=== PATIENT | female | born 1930 | race Caucasian/White ===

== ENCOUNTER 2017-10-22 15:00 | Inpatient (IN) | payer MEDICARE, OTHER ==
[2017-10-22] MEDS ORDERED: MORPHINE 4 MG/ML SYR ONE ×3 (15:15→19:49)
[2017-10-22] MEDS ORDERED: ONDANSETRON 4 MG/2 ML VIAL ONE ×2 (15:15→16:33)
[2017-10-22 15:33] LABS: Absolute Lymphocytes (CBC) 1.4 K/uL (0.7-4.9); Absolute Monocytes 0.4 K/uL (0.1-1.3); Absolute Neutrophil 5.1 K/uL (1.8-8.0); Basophils % 0.8 % (0-1.3); Eosinophils % 3.1 % (0-4.4); Lymphocytes % 19.6 % (15.3-44.8); MCH 30.4 pg (27.0-35.0); MCV 90.2 fL (80-100); MPV 10.9 fL (7.6-11.3); Monocytes % 5.6 % (3.3-12.3); RBC Red Blood Cell Count 3.88 M/uL (3.86-4.86)
[2017-10-22 15:38] LABS: Protime INR 0.98
[2017-10-22 15:59] LABS: ALT/SGPT 15 U/L (12-78); AST/SGOT 17 U/L (15-37); Albumin 3.5 g/dL (3.4-5.0); Alkaline Phosphatase 70 U/L (45-117); BUN Blood Urea Nitrogen 12 mg/dL (7-18); Bicarbonate 25 mmol/L (21-32); Bilirubin Direct 0.1 mg/dL (0-0.2); Bilirubin Total 0.5 mg/dL (0.2-1.0); Creatine Phosphokinase 55 U/L (26-192); Glucose Level 157 mg/dL (74-106); Protein, Total 6.6 g/dL (6.4-8.2); Sodium Level 142 mmol/L (136-145)
[2017-10-22 16:00] LABS: CKMB Creatine Kinase MB < 1.0 ng/mL (0.3-3.6); Magnesium 1.5 mg/dL (1.8-2.4); NT PRO-BNP 298 pg/mL (<450)
--- NOTE | 2017-10-22 16:17 | RAD REPORT ---
EXAM DESCRIPTION: RAD - Pelvis - 10/22/2017 4:08 pm CLINICAL HISTORY: left hip pain Trauma, fall COMPARISON: None FINDINGS: AP pelvis, left hip and left femur - multiple projections. Intratrochanteric fracture the proximal left femur is seen with varus angulation. No dislocation evid ent.
--- NOTE | 2017-10-22 16:18 | RAD REPORT ---
EXAM DESCRIPTION: RAD - Chest Single View - 10/22/2017 4:10 pm CLINICAL HISTORY: fall Chest pain. COMPARISON: No comparisons FINDINGS: Portable technique limits examination quality. The lungs are grossly clear. The heart is normal in size. No displaced fractures.Calcified right corinne tracheal lymph node noted. IMPRESSION: No acute intrathoracic process suspected.
[2017-10-22] MEDS ORDERED: MAGNESIUM SULFATE 1 gm IVPB 1 GM/100 ML BAG IV ONE (16:33)
[2017-10-22] MEDS ORDERED: NA CHLORIDE 0.9% 100 ML IV ONE (16:35)
--- NOTE | 2017-10-22 17:20 | EDPHYS ---
Physician Documentation [facility] Name: Katherin Arcos Age: 87 yrs Sex: Female : 1930 Arrival Date: 10/22/2017 Time: 15:02 Bed 28 Private MD: ED Physician Charanjit Mortensen HPI: 10/22 15:15 This 87 yrs old Female presents to ER via EMS with complaints of Fall Injury. cp 15:15 Details of fall: The patient fell from an upright position, while walking. 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 Associated injuries: The cp patient sustained left hip, decreased range of motion, deformity, obvious fracture, painful injury. Severity of symptoms: in the emergency department the symptoms are unchanged, despite EMS interventions. Historical: - Allergies: 15:06 No Known Allergies; tw2 - Home Meds: 15:06 None [Active]; tw2 - PMHx: 15:06 None; tw2 - Immunization history:: Adult Immunizations up to date. - Social history:: Smoking status: Patient/guardian denies using tobacco. - Immunization history: Last tetanus immunization: unknown. - Ebola Screening: : Patient denies travel to an Ebola-affected area in the 21 days before illness onset. ROS: 15:20 Constitutional: Negative for body aches, chills, fever, poor PO intake. cp 15:20 Eyes: Negative for injury, pain, redness, and discharge. cp 15:20 ENT: Negative for drainage from ear(s), ear pain, sore throat, difficulty swallowing, difficulty handling secretions. 15:20 Cardiovascular: Negative for chest pain, edema, palpitations. 15:20 Respiratory: Negative for cough, shortness of breath, wheezing. 15:20 Abdomen/GI: Negative for abdominal pain, nausea, vomiting, and diarrhea, black/tarry stool, rectal bleeding. 15:20 Back: Negative for pain at rest, pain with movement, radiated pain. 15:20 : Negative for urinary symptoms. 15:20 MS/extremity: Positive for injury or acute deformity, decreased range of motion, deformity, pain, tenderness, of the left hip, Negative for paresthesias. 15:20 Skin: Negative for cellulitis, rash. 15:20 Neuro: Negative for altered mental status, headache, loss of consciousness, syncope, near syncope, weakness. 15:20 All other systems are negative. Exam: 15:30 ECG was reviewed by the Attending Physician. cp 15:30 Constitutional: The patient appears in no acute distress, alert, awake, non-toxic, well cp developed, frail. 15:30 Head/Face: Normocephalic, atraumatic. cp 15:30 Eyes: Periorbital structures: appear normal, Pupils: equal, round, and reactive to cp light and accomodation, Extraocular movements: intact throughout, Conjunctiva: normal, no exudate, no injection, Sclera: no appreciated abnormality, Lids and lashes: appear normal, bilaterally. 15:30 ENT: External ear(s): are unremarkable, Ear canal(s): are normal, clear, TM's: bulging, is not appreciated, bilaterally, dullness, bilaterally, erythema, is not appreciated, bilaterally, Nose: is normal, Mouth: Lips: moist, Oral mucosa: moist, Posterior pharynx: is normal, airway is patent, no erythema, no exudate. 15:30 Neck: C-spine: vertebral tenderness, is not appreciated, crepitus, is not appreciated, cp ROM/movement: is normal, is supple, without pain, no range of motions limitations, no nuchal rigidity. 15:30 Chest/axilla: Inspection: normal, Palpation: is normal, no crepitus, no tenderness. 15:30 Cardiovascular: Rate: normal, Rhythm: regular, Pulses: Pulses are 2+ in right radial artery and left radial artery. Edema: is not appreciated. 15:30 Respiratory: the patient does not display signs of respiratory distress, Respirations: normal, no use of accessory muscles, no retractions, no splinting, no tachypnea, Breath sounds: are clear throughout, no decreased breath sounds, no stridor, no wheezing. 15:30 Abdomen/GI: Inspection: abdomen appears normal, Bowel sounds: active, all quadrants, Palpation: abdomen is soft and non-tender, in all quadrants. 15:30 Back: pain, is absent, ROM is normal. 15:30 Musculoskeletal/extremity: Extremities: grossly normal except: noted in the left hip: decreased ROM, deformity, pain, tenderness, ROM: limited passive range of motion due to pain, in the left hip, Perfusion: the extremity is normally perfused throughout, Sensation intact. 15:30 Skin: cellulitis, is not appreciated, no rash present. 15:30 Neuro: Orientation: to person, place \T\ time. Mentation: lucid, able to follow commands, Cerebellar function: is grossly normal, Motor: moves all fours, strength is normal, Sensation: no obvious gross deficits. Vital Signs: 15:05 BP 165 / 72; Pulse 83; Resp 17; Temp 98.3(O); Pulse Ox 96% ; tw2 16:22 BP 158 / 73; Pulse 90; Resp 18; Pulse Ox 100% on R/A; Pain 7/10; mg2 17:24 BP 138 / 69; Pulse 93; Resp 18; Pulse Ox 99% on R/A; Pain 4/10; mg2 18:21 BP 151 / 58; Pulse 89; Resp 18; Pulse Ox 100% on R/A; Pain 3/10; mg2 19:53 BP 162 / 69; Pulse 90; Resp 18; Temp 98.3(O); Pulse Ox 98% on R/A; Pain 4/10; mg2 [place] Coma Score: 15:06 Eye Response: spontaneous(4). Verbal Response: oriented(5). Motor Response: obeys tw2 commands(6). Total: 15. Trauma Score (Adult): 15:06 Eye Response: spontaneous(1); Verbal Response: oriented(1); Motor Response: obeys tw2 commands(2); Systolic BP: > 89 mm Hg(4); Respiratory Rate: 10 to 29 per min(4); [place] Score: 15; Trauma Score: 12 MDM: 15:04 Patient medically screened. access [facility] [place] 16:00 Differential diagnosis: closed head injury, contusion, fracture, laceration, multiple cp trauma. 16:32 Physician consultation: Wilbert Singh MD was called at 16:32, was contacted at 16:32, regarding consult, patient's condition, would like admission per Dr. Johnathon Gonzales MD. 17:15 Data reviewed: vital signs, nurses notes, lab test result(s), radiologic studies, plain cp films. 17:15 Test interpretation: by ED physician or midlevel provider: plain radiologic studies. cp Counseling: I had a detailed discussion with the patient and/or guardian regarding: the historical points, exam findings, and any diagnostic results supporting the discharge/admit diagnosis, lab results, the need for further work-up and treatment in the hospital. 17:18 Physician consultation: Johnathon Gonzaels MD was called at 17:18, was contacted at 17:18, regarding admission, to the telemetry unit. patient's condition. 10/22 15:17 Order name: Basic Metabolic Panel; Complete Time: 16:24 ss 10/22 15:17 Order name: CBC with Diff; Complete Time: 16:24 ss 10/22 15:17 Order name: Ckmb; Complete Time: 16:24 ss 10/22 15:17 Order name: CPK; Complete Time: 16:24 ss 10/22 15:17 Order name: LFT's; Complete Time: 16:24 ss 10/22 15:17 Order name: Magnesium; Complete Time: 16:24 ss 10/22 15:17 Order name: NT PRO-BNP; Complete Time: 16:24 ss 10/22 15:17 Order name: PT-INR; Complete Time: 16:24 ss 10/22 15:17 Order name: Ptt, Activated; Complete Time: 16:24 ss 10/22 15:17 Order name: Troponin (emerg Dept Use Only); Complete Time: 16:24 ss 10/22 15:17 Order name: Type And Screen; Complete Time: 17:13 ss 10/22 16:40 Order name: ABO/RH no charge; Complete Time: 17:13 EDMS 10/22 17:04 Order name: Urine Dipstick--Ancillary (enter results) eb 10/22 17:30 Order name: CBC with Automated Diff EDMS 10/22 15:08 Order name: XRAY Hip LEFT 2 view cp 10/22 15:08 Order name: XRAY Femur LEFT cp 10/22 15:08 Order name: XRAY Pelvis; Complete Time: 16:24 cp 10/22 15:17 Order name: XRAY Chest (1 view); Complete Time: 16:24 ss 10/22 15:17 Order name: EKG; Complete Time: 15:18 ss 10/22 17:30 Order name: CBC with Automated Diff EDMS 10/22 17:30 Order name: Comprehensive Metabolic Panel EDMS 10/22 17:30 Order name: Comprehensive Metabolic Panel EDMS 10/22 17:30 Order name: Magnesium EDMS 10/22 17:30 Order name: Magnesium EDMS 10/22 15:08 Order name: IV; Complete Time: 15:10 cp 10/22 15:17 Order name: Cardiac monitoring; Complete Time: 15:29 ss 10/22 15:17 Order name: EKG - Nurse/Tech; Complete Time: 15:29 ss 10/22 15:17 Order name: Labs collected and sent; Complete Time: 15:29 ss 10/22 15:17 Order name: O2 Per Protocol; Complete Time: 15:29 ss 10/22 15:17 Order name: O2 Sat Monitoring; Complete Time: 15:29 ss 10/22 15:17 Order name: Urine Dipstick-Ancillary (obtain specimen); Complete Time: 17:23 ss 10/22 15:17 Order name: Diaz; Complete Time: 17:23 ss 10/22 17:30 Order name: CONS Physician Consult EDMS 10/22 17:30 Order name: NPO EDMS 10/22 17:30 Order name: Regular EDMS EC:30 Rate is 79 beats/min. Rhythm is regular. [place] interval is normal. QRS interval is normal. cp QT interval is normal. Interpreted by me. Reviewed by me. Administered Medications: 15:16 Drug: morphine 2 mg Route: IVP; Site: left antecubital; mg2 18:28 Follow up: Response: No adverse reaction; Pain is decreased mg2 15:16 Drug: Zofran 4 mg Route: IVP; Site: left antecubital; mg2 18:28 Follow up: Response: No adverse reaction; Marked relief of symptoms mg2 15:30 Drug: morphine 2 mg Route: IVP; Site: left antecubital; mg2 18:27 Follow up: Response: No adverse reaction; Marked relief of symptoms; Pain is decreased mg2 16:41 Drug: Zofran 4 mg Route: IVP; Site: left antecubital; mg2 18:27 Follow up: Response: No adverse reaction; Marked relief of symptoms mg2 16:42 Drug: Magnesium Sulfate 1 grams Route: IVPB; Infused Over: 1 hrs; Site: left mg2 antecubital; 18:27 Follow up: Response: No adverse reaction mg2 16:42 Drug: morphine 4 mg Route: IVP; Site: left antecubital; mg2 18:27 Follow up: Response: No adverse reaction; Marked relief of symptoms; Pain is decreased mg2 Disposition: 10/23 06:51 Co-signature as Attending Physician, Charanjit Mortensen MD I agree with the assessment and dashawn plan of care. Disposition: 10/22/17 17:20 Hospitalization ordered by Johnathon Gonzales for Inpatient Admission. Preliminary diagnosis are Intertrochanteric fracture of femur - Left, Other slipping, tripping and stumbling and falls. - Bed requested for Telemetry/MedSurg (Inpatient). - Status is Inpatient Admission. mg2 - Condition is Stable. - Problem is new. - Symptoms have improved. UTI on Admission? No Signatures: Dispatcher [employer] EDMS Ginette Ashley RN RN Charanjit Crane MD MD cha Smirch, Shelby RN RN ss Charanjit Dominique, FENG PA cp Lynsey Baumann RN RN tw2 Ghanshyam Barclay RN RN mg2 Corrections: (The following items were deleted from the chart) 10/22 18:07 17:20 Hospitalization Ordered by Johnathon Gonzales MD for Inpatient Admission. Preliminary dw diagnosis is Intertrochanteric fracture of femur - Left; Other slipping, tripping and stumbling and falls. Bed requested for Telemetry/MedSurg (Inpatient). Status is Inpatient Admission. Condition is Stable. Problem is new. Symptoms have improved. UTI on Admission? No. cp 20:05 18:07 10/22/2017 17:20 Hospitalization Ordered by Johnathon Gonzales MD for Inpatient mg2 Admission. Preliminary diagnosis is Intertrochanteric fracture of femur - Left; Other slipping, tripping and stumbling and falls. Bed requested for Telemetry/MedSurg (Inpatient). Status is Inpatient Admission. Condition is Stable. Problem is new. Symptoms have improved. UTI on Admission? No. dw
--- NOTE | 2017-10-22 17:20 | ER ---
Nurse's Notes [facility] Name: Katherin Arcos Age: 87 yrs Sex: Female : 1930 Arrival Date: 10/22/2017 Time: 15:02 Bed 28 Private MD: Diagnosis: Intertrochanteric fracture of femur-Left;Other slipping, tripping and stumbling and falls Presentation: 10/22 15:03 Presenting complaint: EMS states: pt was outside feeding her birds, tripped and fell, tw2 laid there for about an hour and a half before she was able to crawl to the back door before neighbor saw her, left hip pain, external rotation and limb length discrepancy noted. Transition of care: patient was not received from another setting of care. Onset of symptoms was October 22, 2017. Risk Assessment: Do you want to hurt yourself or someone else? Patient reports no desire to harm self or others. Initial Sepsis Screen: Does the patient meet any 2 criteria? No. Patient's initial sepsis screen is negative. Does the patient have a suspected source of infection? No. Patient's initial sepsis screen is negative. Care prior to arrival: Medication(s) given: Fentanyl 50 mcg given IV initiated. 20 GA, in the left antecubital area. 15:03 Method Of Arrival: EMS: [facility] tw2 15:03 Acuity: ABEL 3 tw2 15:17 Mechanism of Injury: Fall tripped. Trauma event details: Injury occurred in the [address], Injury occurred: at home. Injury occurred: October 22, 2017 Injury occurred at: 13:00. Trauma Activation: Physician: ED Physician; Name: kamilla; Notified At: 15:00; Arrived At: 15:00 Physician: General Surgeon; Name: ; Notified At: 15:00; Arrived At: Physician: Radiology; Name: ; Notified At: 15:00; Arrived At: Physician: Respiratory; Name: ; Notified At: 15:00; Arrived At: Physician: Lab; Name: ; Notified At: 15:00; Arrived At: Historical: - Allergies: 15:06 No Known Allergies; tw2 - Home Meds: 15:06 None [Active]; tw2 - PMHx: 15:06 None; tw2 - Immunization history:: Adult Immunizations up to date. - Social history:: Smoking status: Patient/guardian denies using tobacco. - Immunization history: Last tetanus immunization: unknown. - Ebola Screening: : Patient denies travel to an Ebola-affected area in the 21 days before illness onset. Screenin:05 Abuse screen: Denies threats or abuse. Denies injuries from another. Nutritional mg2 screening: No deficits noted. Tuberculosis screening: No symptoms or risk factors identified. Fall Risk Fall in past 12 months (25 points). IV access (20 points). Gait- Impaired (20 pts.). Primary Survey: 15:08 Breathing/Chest: Respiratory pattern: regular, Respiratory effort: spontaneous, mg2 unlabored, Breath sounds: clear, bilaterally. Chest inspection: symmetrical rise and fall of the chest. Circulation: Skin color: pink. Disability Alert. 15:16 A: Airway: patent, No supplemental oxygen in use on arrival. mg2 18:42 Reassessment Breathing/Chest Respiratory pattern Regular Respiratory effort Spontaneous mg2 Unlabored Breath sounds Clear Circulation Heart rhythm Sinus rhythm Disability Alert. Secondary Survey: 15:09 HEENT: No deficits noted. Gastrointestinal: No deficits noted. : No deficits noted. mg2 Musculoskeletal: Circulation, motion, and sensation intact. Swelling present in left hip Reports pain in left hip. Assessment: 15:06 General: Appears in no apparent distress. uncomfortable, Behavior is calm, cooperative. mg2 Pain: Complains of pain in left hip Pain does not radiate. Pain currently is 8 out of 10 on a pain scale. Quality of pain is described as aching, tender, Pain began suddenly, Is intermittent. Neuro: Level of Consciousness is awake, alert, obeys commands, Oriented to person, place, time, situation. Cardiovascular: Capillary refill < 3 seconds Patient's skin is warm and dry. Pulses are all present. Respiratory: Airway is patent Respiratory effort is even, unlabored, Respiratory pattern is regular, symmetrical. GI: No signs and/or symptoms were reported involving the gastrointestinal system. : No signs and/or symptoms were reported regarding the genitourinary system. EENT: No signs and/or symptoms were reported regarding the EENT system. Derm: Skin is intact, Skin is pink, warm \T\ dry. normal. Musculoskeletal: Circulation, motion, and sensation intact. Swelling present in left hip Reports pain in left hip. 17:24 Reassessment: Patient appears in no apparent distress at this time. Patient and/or mg2 family updated on plan of care and expected duration. Pain level reassessed. Patient is alert, oriented x 3, equal unlabored respirations, skin warm/dry/pink. 18:40 Reassessment: patient informed about the admission to the floor and agreed to wait to [facility] be transferred after shift change. 19:55 Reassessment: Patient appears in no apparent distress at this time. Patient and/or mg2 family updated on plan of care and expected duration. Pain level reassessed. Patient is alert, oriented x 3, equal unlabored respirations, skin warm/dry/pink. Marlen from 2nd floor said Brandy will call back to receive the report. Vital Signs: 15:05 BP 165 / 72; Pulse 83; Resp 17; Temp 98.3(O); Pulse Ox 96% ; tw2 16:22 BP 158 / 73; Pulse 90; Resp 18; Pulse Ox 100% on R/A; Pain 7/10; mg2 17:24 BP 138 / 69; Pulse 93; Resp 18; Pulse Ox 99% on R/A; Pain 4/10; mg2 18:21 BP 151 / 58; Pulse 89; Resp 18; Pulse Ox 100% on R/A; Pain 3/10; mg2 19:53 BP 162 / 69; Pulse 90; Resp 18; Temp 98.3(O); Pulse Ox 98% on R/A; Pain 4/10; mg2 [place] Coma Score: 15:06 Eye Response: spontaneous(4). Verbal Response: oriented(5). Motor Response: obeys tw2 commands(6). Total: 15. Trauma Score (Adult): 15:06 Eye Response: spontaneous(1); Verbal Response: oriented(1); Motor Response: obeys tw2 commands(2); Systolic BP: > 89 mm Hg(4); Respiratory Rate: 10 to 29 per min(4); [place] Score: 15; Trauma Score: 12 ED Course: 15:02 Patient arrived in ED. tw2 15:04 Charanjit Mortensen MD is Attending Physician. dashawn 15:04 Charanjit Dominique PA is PHCP. cp 15:05 Ghanshyam Barclay RN is Primary Nurse. mg2 15:05 Triage completed. tw2 15:05 Arm band placed on. tw2 15:05 Maintain EMS IV. Dressing intact. Good blood return noted. Site clean \T\ dry. Gauge \T\ mg 2 site: 20 \T\ left AC. 15:17 Patient has correct armband on for positive identification. Placed in gown. Bed in low mg2 position. Call light in reach. Side rails up X2. Door closed. Warm blanket given. 15:29 EKG done, by electronic development technician. reviewed by Charanjit TONEY. sm3 16:09 XRAY Hip LEFT 2 view In Process Unspecified. EDMS 16:09 XRAY Femur LEFT In Process Unspecified. EDMS 16:09 XRAY Pelvis In Process Unspecified. EDMS 16:09 XRAY Chest (1 view) In Process Unspecified. EDMS 17:00 Urine collected: Diaz catheter specimen, clear, Amount Returned: 100mL. mg2 17:19 Johnathon Gonzales MD is Hospitalizing Provider. cp 17:25 Patient maintains SpO2 saturation greater than 95% on room air. mg2 18:41 No provider procedures requiring assistance completed. Patient admitted, IV remains in mg2 place. 18:44 Thermoregulation: warm blanket given to patient. mg2 Administered Medications: 15:16 Drug: morphine 2 mg Route: IVP; Site: left antecubital; mg2 18:28 Follow up: Response: No adverse reaction; Pain is decreased mg2 15:16 Drug: Zofran 4 mg Route: IVP; Site: left antecubital; mg2 18:28 Follow up: Response: No adverse reaction; Marked relief of symptoms mg2 15:30 Drug: morphine 2 mg Route: IVP; Site: left antecubital; mg2 18:27 Follow up: Response: No adverse reaction; Marked relief of symptoms; Pain is decreased mg2 16:41 Drug: Zofran 4 mg Route: IVP; Site: left antecubital; mg2 18:27 Follow up: Response: No adverse reaction; Marked relief of symptoms mg2 16:42 Drug: Magnesium Sulfate 1 grams Route: IVPB; Infused Over: 1 hrs; Site: left mg2 antecubital; 18:27 Follow up: Response: No adverse reaction mg2 16:42 Drug: morphine 4 mg Route: IVP; Site: left antecubital; mg2 18:27 Follow up: Response: No adverse reaction; Marked relief of symptoms; Pain is decreased mg2 Intake: 19:52 PO: 0ml; IV: 200ml (IV Fluid); Total: 200ml. mg2 Output: 19:52 Urine: 100ml (Diaz); Total: 100ml. mg2 Outcome: 17:20 Decision to Hospitalize by Provider. cp 18:44 circumstances like shift change, patient's stay in xray, awaiting for xray mg2 reportPatient's length of stay extended due to 20:01 Admitted to Med/surg accompanied by tech, via stretcher, room 204, with chart, Report mg2 called to HUMBERTO Nava 20:01 Condition: stable 20:05 Patient left the ED. mg2 Signatures: Dispatcher [employer] EDMS Charanjit Mortensen MD MD cha Page, Corey, PA Lynsey Sepulveda cp RN RN tw2 Ghanshyam Barclay RN RN mg2 Ptasy Gross 3
[2017-10-22] MEDS ORDERED: ACETAMINOPHEN 500 MG TAB PO PRN (17:26)
[2017-10-22] MEDS ORDERED: ONDANSETRON 4 MG/2 ML VIAL IV PRN (17:26)
[2017-10-22 18:36] LABS: Urine Blood 1+ (NEG); Urine Glucose NEGATIVE (NEG); Urine Protein 1+ (NEG); Urine Specific Gravity 1.025 (1.005-1.030); Urine pH 5.5 (5.0-7.0)
--- NOTE | 2017-10-22 20:14 | RAD REPORT ---
EXAM DESCRIPTION: RAD - Hip Left 2 View - 10/22/2017 4:11 pm CLINICAL HISTORY: Left hip pain Trauma, fall COMPARISON: None FINDINGS: AP pelvis, left hip and left femur - multiple projections. Intratrochanteric fracture the proximal left femur is seen with varus angulation. No dislocation evid ent.
--- NOTE | 2017-10-22 20:14 | RAD REPORT ---
EXAM DESCRIPTION: RAD - Femur Left - 10/22/2017 4:11 pm CLINICAL HISTORY: Left hip pain Trauma, fall COMPARISON: None FINDINGS: AP pelvis, left hip and left femur - multiple projections. Intratrochanteric fracture the proximal left femur is seen with varus angulation. No dislocation evid ent.
[2017-10-22] MEDS: D5 0.45 NS 1,000 ML IV SCH (21:07)
[2017-10-22] MEDS: MORPHINE 4 MG/ML SYR IV PRN (21:08)
--- NOTE | 2017-10-22 21:52 | EKG ---
Test Date: 2017-10-22 Test Time: 15:21:38 Lime Sludge Mixer: JAVIER MEASUREMENT RESULTS: Intervals: Rate: 79 IA: 140 QRSD: 74 QT: 364 QTc: 417 [place]: P: 39 IA: 140 QRS: 5 T: 31 INTERPRETIVE STATEMENTS: Sinus rhythm with premature atrial complexes Inferior-posterior infarct, age undetermined Abnormal ECG No previous ECG available for comparison Electronically Signed On 10-22-17 21:51:15 CDT by Perry Patel
--- NOTE | 2017-10-23 01:45 | HP ---
Date of Admission: 10/22/2017 Primary Care Physician: None. Consultants: Wilbert Singh MD, with Orthopedics. Code Status: Full. Chief Complaint: Fall, pain in the left hip. History Of Present Illness: The patient is an 87-year-old female with no significant past medical hi story, who was outside feeding the Square, and had a mechanical fall on the uneven stones, and was makenzie n for approximately an hour to an hour and a half, having some significant pain on the left side, no head trauma. The patient denies any dizziness, lightheadedness, shortness of breath, chest pain, or loss of consciousness. The patient was helped up by her neighbor and was brought into the ER for fur ther evaluation. The patient's pain is constant, moderate, nonradiating, progressively worsening. I n the ER, her workup revealed normal white count, hemoglobin 11.8. The patient was referred for admi ssion for hip fracture, which was on the left side. X-ray showed intertrochanteric fracture of the p roximal left femur. When the patient was seen in the ER, she was awake, alert, and oriented x3, in s ome mild distress due to pain, which had improved with medications. Past Medical History: None. Past Surgical History: The patient had hysterectomy. Allergies: NO KNOWN DRUG ALLERGIES. Medications: None. Social History: The patient denies any tobacco use, alcohol use, or illicit drug use. The patient i s independent in her activities of daily living. Does not use any assistive ambulatory devices. Desiree es at home by herself. Family History: The patient denies any significant family history in her siblings or her parents. M other of old age in her late 90s. Review of Systems: Eleven-point system reviewed, negative except as per HPI. Physical Examination: Vital Signs: Temperature 98.3, heart rate 83, blood pressure 165/72, respirations 17, O2 saturation 96% on room air. General: Awake, alert, oriented x3. Some mild distress due to pain. Elderly female. HEENT: Normocephalic, atraumatic. PERRLA. EOMI. Moist mucous membranes. Oropharynx is clear. Po or dentition. Conjunctivae anicteric. Neck: Supple. No JVD. Trachea midline. CV: S1, S2. Regular rate and rhythm. Peripheral pulses present. No murmurs. Respiratory: Clear to auscultation bilaterally. No wheezing. No stridor. No use of accessory musc les. Gastrointestinal: Abdomen is soft, nontender, and nondistended. Positive bowel sounds. No guarding or rigidity. Extremities: No clubbing, cyanosis, or edema. No calf tenderness. Musculoskeletal: Pain in the left hip. Left lower extremity is externally rotated and shortened. Neuro: Cranial nerves 2 through 12 intact grossly. No focal neurological deficit. Sensation intact to light touch. Speech is normal. No facial asymmetry. Psych: Mood is okay. Affect is full. Insight and judgment are good. Skin: No rashes. Normal skin turgor. Laboratory Data: Sodium 142, potassium 4, chloride 109, CO2 25, BUN 12, creatinine 1, glucose 157, c alcium 9, magnesium 1.5. Troponin less than 0.02. INR 0.98. WBC 7.2, H and H 11.8 and 35, platelet s 181. Chest x-ray shows no acute intrathoracic process, personally reviewed. Hip x-ray shows inter trochanteric fracture of the proximal left femur with varus angulation. No dislocation event. Assessment And Plan: An 87-year-old female with; 1.Left intertrochanteric fracture of the proximal left femur. Dr. Singh has been consulted. We wi ll anticipate surgery in a.m. The patient does not have any medical history. EKG shows normal sinus rhythm. Troponins are negative. The patient is cleared for surgical intervention. We will start o n IV fluids. Keep n.p.o. after midnight. Pain medications with morphine. 2.Status post mechanical fall. 3.Hypomagnesemia. We will replace and monitor. 4.Gastrointestinal and deep venous thrombosis prophylaxes, addressed. No chemical anticoagulation d ue to anticipating surgery. Plan: Admit the patient to Med-Surg, place as inpatient. The patient will likely need to go to reha b after surgery. We will obtain UA. MEDINA/THOMPSON Voice ID: [id number]
[2017-10-23 05:01] LABS: Absolute Lymphocytes (CBC) 0.7 K/uL (0.7-4.9); Absolute Monocytes 0.6 K/uL (0.1-1.3); Absolute Neutrophil 4.9 K/uL (1.8-8.0); Basophils % 0.5 % (0-1.3); Eosinophils % 0.8 % (0-4.4); Hematocrit 28.8 % (36.0-45.0); Lymphocytes % 11.5 % (15.3-44.8); MCH 30.6 pg (27.0-35.0); MPV 10.5 fL (7.6-11.3); Monocytes % 9.6 % (3.3-12.3)
[2017-10-23 05:24] LABS: Albumin 2.7 g/dL (3.4-5.0); Bilirubin Total 0.5 mg/dL (0.2-1.0); Magnesium 1.7 mg/dL (1.8-2.4); Potassium 4.4 mmol/L (3.5-5.1); Protein, Total 5.3 g/dL (6.4-8.2)
[2017-10-23] MEDS: MORPHINE 4 MG/ML SYR IV PRN ×4 (05:27→23:18)
[2017-10-23] MEDS: D5 0.45 NS 1,000 ML IV SCH ×2 (05:33→23:23)
[2017-10-23] MEDS ORDERED: MAGNESIUM SULFATE 1 gm IVPB 1 GM/100 ML BAG IV ONE (06:15)
--- NOTE | 2017-10-23 11:28 | PREOPHP ---
Date of Admission: 10/22/2017 Requesting Physician: Dr. Johnathon Gonzales. Reason For Consultation: Left hip fracture. History Of Present Illness: This 87-year-old female was walking in her backyard when she tripped and fell impacting her left hip. She was unable to ambulate and crawled taking an hour and a half to ge t out of the sun to her back porch, where she was discovered by a neighbor and brought to [facility] ED via ambulance. The patient has no known allergies. No active home meds. She describes having no significant past medical history. The patient's vital signs are stable. Th e history of present illness is as above. Past Surgical History: Limited. Hysterectomy. Social History: The patient does not use tobacco or alcohol. Review of Systems: A 10-point system reviewed, negative except as per HPI. Physical Examination: Vital Signs: Blood pressure is 165/72, respirations 17, O2 saturation 96% on room air, temperature 9 8.3. General: The patient is alert, oriented, and cooperative, in mild distress with any movement because of pain in the left hip. HEENT: Within normal limits. Neck: Supple. Nontender. Chest: Clear to auscultation. Cardiovascular: Shows regular rate and rhythm. Pulses are strong. Abdomen: Soft and nontender without distention. Active bowel sounds are present. Extremities: On examination of the extremities, the left lower extremity has a strong dorsal pedis p ulse. There is external rotation and shortening of the left lower extremity. Any movement of the up per body causes pain in the hip as well. Genital: Deferred. Rectal: Deferred. Laboratory Data: Shows H and H of 11.8/35, WBC 7.2 with 71% neutrophils. Protime is 11.6. INR is 0 .98. PTT is 22.8, slightly low. GFR is 53. Glucose is 57. Chest x-ray is clear. Hip x-ray shows an intertrochanteric fracture of the proximal left femur with varus angulation. Assessment And Plan: Left intertrochanteric fracture of the proximal left femur. The patient has be en made aware of risks and benefits and wishes to proceed with intramedullary nail fixation for this left hip fracture. Dr. Gonzales has cleared the patient surgically. SLH/MODL Voice ID: [id number]
[2017-10-23] MEDS ORDERED: Ringers Lactate 1,000 ML IV ONE ×2 (12:29→13:32)
[2017-10-23] MEDS ORDERED: PROPOFOL 200 MG/20 ML VIAL IV ONE (12:44)
[2017-10-23] MEDS ORDERED: LIDOCAINE 2% MPF 5 ML VIAL ONE (12:45)
[2017-10-23] MEDS ORDERED: FENTANYL CITR 100 MCG/2 ML ONE ×2 (12:45→13:45)
[2017-10-23] MEDS ORDERED: ONDANSETRON HCL 40 MG/20 ML VIAL ONE (12:46)
[2017-10-23] MEDS ORDERED: CEFAZOLIN/SWI 1gm 1 GM/10 ML SYR ONE (12:48)
[2017-10-23] MEDS ORDERED: EPHEDRINE SULF 50 MG/10 ML SYR ONE (13:12)
[2017-10-23] MEDS: BUPIVACA 0.25%/EPI 0.0005%/PF 30 ML VIAL ONE ×2 (13:49→14:26)
--- NOTE | 2017-10-23 14:19 | PN ---
Date of Progress Note: 10/23/2017 Subjective: The patient states her pain is improved with medications. The patient is going for surg du today. Review of Systems: Negative except as above. Medications: List reviewed. Physical Examination: Vital Signs: Temperature 98, heart rate 92, blood pressure 121/65, respirations 18, O2 92% on room a ir. General: Awake, alert, oriented x3. Some mild distress. Elderly female. CV: S1, S2. No murmurs. Regular rate and rhythm. Peripheral pulses present. Respiratory: Clear to auscultation bilaterally. No wheezing. Gastrointestinal: Abdomen is soft, nontender, nondistended. Positive bowel sounds. Extremities: No clubbing, cyanosis. Mild edema of the left lower extremity. Neurologic: Nonfocal. Sensation intact light touch. Laboratory Data: Sodium 142, potassium 4.4, chloride 110, CO2 28, BUN 12, creatinine 6.8, glucose 13 2, calcium 8.1, magnesium 1.7. AST 115, ALT 94, and albumin 2.7. WBC 6.3, H and H 9.8 and 38.8, domingo telets 127, neutrophils 77%. Assessment And Plan: An 87-year-old female with: 1.Acute left hip fracture, initial encounter. Appreciate Dr. Singh's Input. Anticipate surgery to day. Continue pain control. 2.Status post mechanical fall. 3.Hypomagnesemia, replaced. Continue to monitor. 4.Gastrointestinal and deep venous thrombosis prophylaxis. No chemical anticoagulation due to surge ry. /THOMPSON Voice ID: [id number] Report ID: [id number]
[2017-10-23] MEDS: MEPERIDINE HCL 50 MG/ML AMP ONE ×2 (15:04→15:09)
--- NOTE | 2017-10-23 15:09 | P.BOP ---
Preoperative diagnosis: LEFT INTERTROCH. FRACTURE PROX. FEMUR Postoperative diagnosis: SAME Primary procedure: I.M.NAIL FIXATION FOR LEFT INTERTROCH. PROX. FEMUR FRACTURE Diamond Grinder: JAZMIN RHODES (GAVE NECESSARY 1ST ASSIST SEVICES THROUGHOUT PROCEDURE) Estimated blood loss: 150 mL Specimen: NONE Findings: ADEQUATE REDUCTION VERIFIED w/C-ARM Anesthesia: General Complications: None Implants: [id number];LAG [id number];AR [id number] Fluids & blood products: INJ.30mL 0.25%MARCAINE w/EPI Transferred to: Recovery Room Condition: Good
[2017-10-23] MEDS ORDERED: DOCUSATE NA 100 MG CAP PO PRN (15:13)
[2017-10-23] MEDS ORDERED: MAGNESIUM HYDROXIDE 8% 30 ML PO PRN (15:13)
[2017-10-23 15:21] LABS: Hematocrit 29.6 % (36.0-45.0)
--- NOTE | 2017-10-23 15:26 | RAD REPORT ---
EXAM DESCRIPTION: RAD - Hip In Or - 10/23/2017 3:15 pm CLINICAL HISTORY: IM HIP RODDING COMPARISON: Pelvis dated 10/22/2017 FINDINGS: Fluoroscopic imaging is submitted from intramedullary hernando procedure left hip. Details of t he procedure are not available. Total fluoro time 0.7 minutes.
[2017-10-23] MEDS ORDERED: CEFAZOLIN/NS 1gm 1 GM/50 ML BAG IVPB SCH (18:00)
[2017-10-23] MEDS: CEFAZOLIN/SWI 1gm 1 GM/10 ML SYR IVP SCH ×2 (18:46→23:23)
[2017-10-24] MEDS: MORPHINE 4 MG/ML SYR IV PRN (04:00)
[2017-10-24 05:01] LABS: Absolute Lymphocytes (CBC) 0.5 K/uL (0.7-4.9); Absolute Monocytes 0.6 K/uL (0.1-1.3); Absolute Neutrophil 6.8 K/uL (1.8-8.0); Basophils % 0.5 % (0-1.3); Eosinophils % 0.3 % (0-4.4); Hematocrit 26.4 % (36.0-45.0); Lymphocytes % 6.6 % (15.3-44.8); MCH 30.9 pg (27.0-35.0); MCV 90.3 fL (80-100); Monocytes % 7.2 % (3.3-12.3); RBC Red Blood Cell Count 2.93 M/uL (3.86-4.86)
[2017-10-24 05:22] LABS: Blood Morphology Comment NOT SEEN (NOT SEEN); Platelet Estimate ADEQ; Urine White Blood Cell Casts OK
[2017-10-24 05:25] LABS: BUN Blood Urea Nitrogen 12 mg/dL (7-18); Bicarbonate 28 mmol/L (21-32); Glucose Level 135 mg/dL (74-106); Magnesium 1.7 mg/dL (1.8-2.4); Potassium 4.7 mmol/L (3.5-5.1); Sodium Level 137 mmol/L (136-145)
[2017-10-24] MEDS ORDERED: MAGNESIUM SULFATE 1 gm IVPB 1 GM/100 ML BAG IV ONE (05:36)
[2017-10-24] MEDS: RIVAROXABAN 10 MG TABLET PO SCH (09:34)
[2017-10-24] MEDS: FE SULF/FA/VIT B COMP & C TAB PO SCH (09:35)
[2017-10-24] MEDS: HYDROCODONE/APAP 7.5/325 MG TAB PO PRN ×2 (10:21→22:13)
--- NOTE | 2017-10-24 13:13 | PN ---
Date of Progress Note: 10/24/2017 Subjective: The patient is seen and examined. Chart reviewed and case discussed with RN. Case disc ussed with Dr. Singh as well. The patient did well postoperatively. Still complains of some slight pain. The patient started on anticoagulation post surgery. Review of Systems: Negative except as above. Medications: List reviewed. Physical Examination: Vital Signs: Temperature 98.6, heart rate 88, blood pressure 125/57, respirations 18, O2 96% on 2 L. General: Awake, alert, oriented x3. Elderly female, slightly some mild distress due to pain. CV: S1, S2. No murmurs. Regular rate and rhythm. Peripheral pulses present. Respiratory: Clear to auscultation bilaterally. No wheezing. No stridor. No use of accessory musc les. Gastrointestinal: Abdomen is soft, nontender, nondistended. Positive bowel sounds. Extremities: No clubbing, cyanosis, edema. Musculoskeletal: Left hip clean, dry, and intact. Neurologic: Nonfocal. Laboratory Data: Sodium 137, potassium 4.7, chloride 105, CO2 28, BUN 12, creatinine 0.6, glucose 13 5, calcium 7.9, magnesium 1.7. WBC 7.9, H and H 9 and 26.4, platelets 105. Assessment And Plan: An 87-year-old female with: 1.Left hip fracture, initial encounter, status post open reduction and internal fixation, postoperat ashanti day #1. Dr. Singh on board. The patient has been referred to rehab. We will start physical th erapy. 2.Status post mechanical fall. 3.Hypomagnesemia, replaced. 4.Gastrointestinal and deep venous thrombosis prophylaxis with PPI and Xarelto 10 mg daily. 5.Mild postoperative anemia. The patient has been started on p.o. iron. We will continue to monito r H and H. Plan: Discharge to rehab once accepted. Continue incentive spirometry. PT ana. /THOMPSON Voice ID: [id number] Report ID: [id number]
--- NOTE | 2017-10-24 14:55 | P.PN ---
Date of Service: 10/24/17 (POD#1) S: PATIENT COMFORTABLE IN BED SELECTING DIET FOR TOMORROW. O: AFEBRILE, VSS, HGB 9.0 DOWN FROM 10.0 POST OP. WBC 7.9 85%NEUT. PATIENT DESCRIBES DANGLING ON BEDSIDE AND SITTING FOR 1-1/2 HRS IN AM AND WALKING TO DOOR TOE TOUCH LLE THIS AFTERNOON. A: PATIENT MAKING ADEQUATE PROGRESS POD#1 P: CONTINUE MOBILIZATION. XARELTO 10 mg STARTED TODAY FOR DVT PROPHYLAXIS.
[2017-10-25 05:02] LABS: Absolute Lymphocytes (CBC) 0.7 K/uL (0.7-4.9); Absolute Monocytes 0.5 K/uL (0.1-1.3); Absolute Neutrophil 6.7 K/uL (1.8-8.0); Basophils % 0.4 % (0-1.3); Eosinophils % 1.2 % (0-4.4); Hematocrit 24.9 % (36.0-45.0); Lymphocytes % 8.4 % (15.3-44.8); MCH 31.1 pg (27.0-35.0); MCV 90.1 fL (80-100); MPV 11.1 fL (7.6-11.3); Monocytes % 6.7 % (3.3-12.3); RBC Red Blood Cell Count 2.77 M/uL (3.86-4.86)
[2017-10-25 05:28] LABS: BUN Blood Urea Nitrogen 14 mg/dL (7-18); Bicarbonate 26 mmol/L (21-32); Glucose Level 94 mg/dL (74-106); Magnesium 1.7 mg/dL (1.8-2.4); Potassium 4.2 mmol/L (3.5-5.1); Sodium Level 137 mmol/L (136-145)
[2017-10-25] MEDS ORDERED: MAGNESIUM SULFATE 1 gm IVPB 1 GM/100 ML BAG IV ONE ×2 (06:25→06:30)
[2017-10-25] MEDS: FE SULF/FA/VIT B COMP & C TAB PO SCH (08:59)
[2017-10-25] MEDS: RIVAROXABAN 10 MG TABLET PO SCH (09:00)
--- NOTE | 2017-10-25 11:02 | P.PN ---
Date of Service: 10/25/17 (POD#2) S: PATIENT SITTING ON EDGE OF BED, BEGINNING WORKOUT WITH P.T. O: AFEBRILE, VSS, HGB 8.6 DOWN FROM 10.0 POST OP. WBC 8.1 83% NEUT., BANDAGE CLEAN AND DRY A: PATIENT MAKING ADEQUATE PROGRESS POD#2 P: CONTINUE MOBILIZATION. PENDING DECISION OF REHAB STAY.
[2017-10-25] MEDS: HYDROCODONE/APAP 7.5/325 MG TAB PO PRN ×3 (11:22→23:11)
--- NOTE | 2017-10-25 12:23 | PN ---
Subjective: Currently, the patient is lying in bed. She looks comfortable. She had some nausea ear lier. No vomiting, no fever, no chills. Overnight she is little bit tachycardic. She would like Fo lina catheter be removed. Her pain is well controlled. Review of Systems: Otherwise, negative. Objective: Vital Signs: Currently, blood pressure is 154/60, respiratory rate 18, pulse 120, temper ature 98. She is saturating 97% on room air. She is alert and oriented x3. Does not look in any di stress. HEENT: Atraumatic, normocephalic. PERRLA. Oral mucosa is moist. Neck: Supple. No JVD. No carotid bruits. Chest: Clear to auscultation. Good air entry. Heart: Regular rate and rhythm. S1, S2 normal. No gallop or murmur. Abdomen: Soft, nontender. No masses. No hepatosplenomegaly. Positive bowel sounds. Extremities: No clubbing or cyanosis. Slight edema in left lower extremity. Musculoskeletal: Left hip in dressing. Neurologic: Grossly intact. Laboratory Data: Labs today; CBC showed hemoglobin 8.6, white blood cell 8.1, platelets 113. Chemis try within normal except for creatinine 0.5, calcium 8.1, magnesium 1.7. Assessment And Plan: 1.Left hip fracture. Postop day 2, status post open reduction and internal fixation. Continue phys ical therapy until transition to rehab on Friday. 2.Hypomagnesemia, mild, we will replace. 3.Anemia, postop we will observe. 4.Gastrointestinal prophylaxis and deep venous thrombosis prophylaxis. Continue PPI and Xarelto 10 mg daily. 5.Tachycardia. We will start low-dose metoprolol 25 mg twice a day. KENAN/MODL Voice ID: [id number] Report ID: [id number]
[2017-10-25] MEDS: METOPROLOL TAR 25 MG TAB PO SCH (17:28)
[2017-10-26] MEDS: HYDROCODONE/APAP 7.5/325 MG TAB PO PRN ×4 (04:22→23:23)
[2017-10-26 05:14] LABS: Absolute Lymphocytes (CBC) 0.8 K/uL (0.7-4.9); Absolute Monocytes 0.5 K/uL (0.1-1.3); Absolute Neutrophil 5.8 K/uL (1.8-8.0); Basophils % 0.7 % (0-1.3); Eosinophils % 2.7 % (0-4.4); Hematocrit 25.3 % (36.0-45.0); Lymphocytes % 11.1 % (15.3-44.8); MCH 30.7 pg (27.0-35.0); MCV 89.5 fL (80-100); MPV 10.6 fL (7.6-11.3); Monocytes % 7.2 % (3.3-12.3); RBC Red Blood Cell Count 2.83 M/uL (3.86-4.86)
[2017-10-26] MEDS: METOPROLOL TAR 25 MG TAB PO SCH ×2 (05:26→17:28)
[2017-10-26] MEDS ORDERED: MAGNESIUM SULFATE 1 gm IVPB 1 GM/100 ML BAG IV ONE (06:00)
[2017-10-26] MEDS: RIVAROXABAN 10 MG TABLET PO SCH (09:30)
[2017-10-26] MEDS: FE SULF/FA/VIT B COMP & C TAB PO SCH (09:30)
--- NOTE | 2017-10-26 11:38 | P.PN ---
Date of Service: 10/26/17 (POD#3) S: PATIENT IN GOOD SPIRITS, BM THIS MORNING. WORKOUT WITH P.T. ABOUT TO START. O: AFEBRILE, VSS, HGB 8.7, STABLE. WBC 7.5 78% NEUT., BANDAGE CLEAN AND DRY. NV EXAM INTACT. AFIA'S SIGN NEGATIVE A: PATIENT MAKING ADEQUATE PROGRESS POD#3 P: CONTINUE MOBILIZATION. PENDING DECISION OF REHAB STAY.
[2017-10-26] MEDS ORDERED: Magnesium Sulfate 2gm IVPB 2 G/50 ML BAG IV ONE (12:00)
--- NOTE | 2017-10-26 13:52 | PN ---
Subjective: Currently, she is in bed. She looks comfortable. She had a bowel movement. She is abl e to ambulate to the commode. She is working with Physical Therapy. No chest pain. No abdominal pa in. Hip pain well controlled. Objective: Vital Signs: Blood pressure 125/56, respiratory rate 12, pulse 67, temperature 97.6. General: She is alert and oriented x3. Does not look in any distress. HEENT: Atraumatic, normocephalic. PERRLA. Oral mucosa is moist. Neck: Supple. No JVD. No carotid bruits. Chest: Clear to auscultation. Good air entry. No expiratory wheezing. Heart: Regular rate and rhythm. S1, S2 normal. No gallop. Abdomen: Soft. No masses. No hepatosplenomegaly. Positive bowel sounds. Extremities: No clubbing. No cyanosis. She does have trace edema in the left lower extremity posto p. Neurologic: Grossly intact. Laboratory Data: Labs today showed CBC with hemoglobin 8.7, stable from yesterday. Platelets 151. Chemistry; magnesium was 1.7 again. Assessment And Plan: 1.Left hip fracture, postop day 3 status post open reduction and internal fixation. We will continu e physical therapy. Hopefully, the patient will be approved for rehab transfer on Friday morning. 2.Hypomagnesemia with magnesium still at 1.7. We will continue replacing. 3.Anemia, postop H and H relatively stable. Hemoglobin at 8.7, need for transfusion. 4.Gastrointestinal prophylaxis with PPI and deep venous thrombosis prophylaxis with Xarelto 10 mg, c ontinue. 5.Tachycardia, postop, resolved after I started low dose of beta- camila. Continue for now. Heart rate around 67 this morning. 6.The plan is to transfer in the morning to rehab. KENAN/THOMPSON Voice ID: [id number] Report ID: [id number]
[2017-10-27 05:02] LABS: Absolute Lymphocytes (CBC) 0.9 K/uL (0.7-4.9); Absolute Monocytes 0.7 K/uL (0.1-1.3); Absolute Neutrophil 6.3 K/uL (1.8-8.0); Basophils % 0.8 % (0-1.3); Eosinophils % 3.4 % (0-4.4); Hematocrit 25.9 % (36.0-45.0); Lymphocytes % 11.2 % (15.3-44.8); MCH 31.1 pg (27.0-35.0); MCV 89.4 fL (80-100); MPV 10.3 fL (7.6-11.3); Monocytes % 8.1 % (3.3-12.3)
[2017-10-27 05:15] LABS: ALT/SGPT 21 U/L (12-78); AST/SGOT 17 U/L (15-37); Albumin 2.4 g/dL (3.4-5.0); Alkaline Phosphatase 70 U/L (45-117); BUN Blood Urea Nitrogen 16 mg/dL (7-18); Bicarbonate 26 mmol/L (21-32); Bilirubin Total 0.8 mg/dL (0.2-1.0); Glucose Level 92 mg/dL (74-106); Magnesium 1.9 mg/dL (1.8-2.4); Potassium 3.7 mmol/L (3.5-5.1); Protein, Total 5.5 g/dL (6.4-8.2); Sodium Level 133 mmol/L (136-145)
[2017-10-27] MEDS ORDERED: POTASSIUM CL SA 10 MEQ TAB PO ONE (05:48)
[2017-10-27] MEDS: HYDROCODONE/APAP 7.5/325 MG TAB PO PRN ×3 (05:53→20:13)
[2017-10-27] MEDS: METOPROLOL TAR 25 MG TAB PO SCH ×2 (05:54→17:48)
[2017-10-27] MEDS: FE SULF/FA/VIT B COMP & C TAB PO SCH (09:47)
[2017-10-27] MEDS: RIVAROXABAN 10 MG TABLET PO SCH (09:47)
--- NOTE | 2017-10-27 12:37 | OP ---
Date of Procedure: 10/23/2017 Surgeon: Wilbert Singh MD Tourism Radio Presenter: Rosa Hahn, who gave very necessary airline pilot/first officer services throughout the procedure. Preoperative Diagnosis: Left intertrochanteric fracture, proximal femur, displaced. Postoperative Diagnosis: Left intertrochanteric fracture, proximal femur, displaced. Procedure: Intramedullary nail fixation for left intertrochanteric proximal femur fracture. Indications: This 87-year-old female was admitted on 10/22/2017 after a fall at home in her backyard while feeding birds. She was an hour and a half before she could get the attention of her neighbors to come and notify EMS personnel to bring her to the [facility] Emergency Department. The patient's x-ray shows an intertrochanteric fracture of the proximal left hip with varus deformity and separate the greater and lesser trochanteric fragments. After discussing risks and benefits, the patient has elected to proceed with intramedullary nail fixation for this left intertrochanteric proximal femur fracture with varus displacement. Technique: The patient was taken to the operating room and given a general anesthesia with LMA inser tion. The patient was moved onto the fracture table. A reduction was carried out with first externa l rotation of the left lower extremity, then lifting the posterior thigh while internal rotation was carried out and secured with the fracture table adjustments. C-arm verified adequate reduction and t he left lower extremity was prepped and draped in the usual manner from the ribcage to below the knee with Betadine scrub and Betadine solution followed by application of vertical isolation drape. The C-arm was positioned in the space between the legs so that AP and lateral views could be obtained of the left hip. With the visualization afforded by the C-arm, the incision was made proximal to the gr eater trochanter that allowed passing the cannulated awl through the tip of the greater trochanter ac ross the intertrochanteric joint space. The guidewire was passed into the intramedullary canal, whic h was verified by AP and lateral projections as the wire passed on down to just above the patella lev el. Sequential reamers were used increasing from a 10 to 11 to 12 to 12.5 to 13 to 13.5 and then a s ize 14 reamer was passed so that the 13 mm AFFIXUS nail with 125 degrees of angulation and 180 mm of length could be utilized. The nail was connected to the outrigger and then tapped across the fractur e site until it was at the appropriate level for a guidewire followed by the lag screw. The guidewir e was positioned and measured to select a lag screw of 10.5 x 105 mm. This was rotated in using a T- handle passing the lag screw along the length of the inserted guide pin. Once the lag screw was comp letely set at the appropriate depth and tightened, then the guide pin was removed. A 90 mm anti-rota tional screw was chosen and rotated into position in a parallel fashion to the initial lag screw. The proximal incision was used for inserting a hex head screwdriver for locking the lag screw in its final position. At that point, targeting the distal portion of the intramedullary nail was carried o ut with an incision 1 cm in length and a 5.0 x 36 mm distal interlocking screw was inserted across th e femoral shaft through the distal end of the nail. All 3 incisions were irrigated with normal salin e and closed using #1 Vicryl for fascial layers, 2-0 Vicryl for subcutaneous layers, and skin hernesto for the skin closure. Two Aquacel bandages were utilized to cover the incisions after 30 mL of 0.25 % Marcaine with epinephrine was injected into the 3 small incisions. The patient was removed from e fracture table back into her hospital bed and taken to the recovery room having tolerated this proc edure well. Adequate reduction and good position for internal fixation were verified by C-arm. AURELIO/THOMPSON Voice ID: [id number] Report ID: [id number]
--- NOTE | 2017-10-27 14:30 | P.PN ---
Subjective Date of Service: 10/27/17 Primary Care Provider: unknown Subjective: Doing well Physical Examination - Vital Signs Temperature: 97.1 F Blood Pressure: 139/64 Pulse: 74 Respirations: 16 Pulse Ox (%): 94 - Physical Exam General: Alert, In no apparent distress, Oriented x3, Cooperative HEENT: Atraumatic Neck: Supple Respiratory: Clear to auscultation bilaterally, Normal air movement Cardiovascular: Normal pulses, Regular rate/rhythm Gastrointestinal: Normal bowel sounds, Soft and benign, Non-distended, No tenderness, No masses, No rebound, No guarding Musculoskeletal: No erythema, No tenderness, No warmth Integumentary: No tenderness/swelling, No erythema, No warmth, No cyanosis Neurological: Normal speech, Normal strength at 5/5 x4 extr, Normal tone, Normal affect - Studies Medications List Reviewed: Yes Assessment & Plan - Problems (Diagnosis) (1) Anemia Current Visit: Yes Status: Acute Plan: Anemia stable status post surgery. Will continue monitor closely. Will evaluate for iron and B12 deficiency Qualifiers: Anemia type: other cause (2) Fracture, intertrochanteric, left femur Onset Date: 10/27/17 Current Visit: Yes Status: Acute Plan: Status post surgery. Patient responding well to physical therapy. Case discussed with social services analyst. Awaiting inpatient rehab acceptance Qualifiers: Encounter type: initial encounter Fracture type: closed (3) Hypomagnesemia Onset Date: 10/27/17 Current Visit: Yes Status: Acute Plan: Continue monitor and adjust appropriately. (4) Tachycardia Current Visit: Yes Status: Acute Plan: Patient had tachycardia post operatively. Patient doing well with beta- camila. Will continue monitor closely. Discharge Plan: Other (Inpatient rehab) Plan to discharge in: 24 Hours Time Spent Managing Pts Care (In Minutes): 55
--- NOTE | 2017-10-27 20:19 | P.PN ---
Date of Service: 10/27/17 (POD#4) S: PATIENT OBSERVED MOVING WITH MINIMAL HELP TO BED FROM CHAIR. NO NEWS FOR PATIENT ABOUT REHAB LOCATION. 5TH FLOOR STILL IN PLAY PER COMPUTERIZED NOTES AVAILABLE FOR REVIEW. [facility] OPTIONS BEING LOOKED AT WELL. O: AFEBRILE, VSS, HGB 9.0, STABLE. WBC 8.3 77% NEUT., PATIENT WENT 100' IN AM, 115' IN PM WITH RW. BANDAGE CLEAN AND DRY. NV EXAM INTACT. AFIA'S SIGN NEGATIVE A: PATIENT MAKING ADEQUATE PROGRESS POD#4 P: CONTINUE MOBILIZATION. PENDING DECISION OF REHAB STAY.
[2017-10-28] MEDS: HYDROCODONE/APAP 7.5/325 MG TAB PO PRN ×5 (02:11→21:48)
[2017-10-28 05:08] LABS: BUN Blood Urea Nitrogen 14 mg/dL (7-18); Bicarbonate 28 mmol/L (21-32); Glucose Level 92 mg/dL (74-106); Potassium 4.1 mmol/L (3.5-5.1); Sodium Level 136 mmol/L (136-145)
[2017-10-28] MEDS: METOPROLOL TAR 25 MG TAB PO SCH ×2 (05:58→17:02)
[2017-10-28 07:27] LABS: Ferritin 100.8 ng/mL (8-388)
[2017-10-28] MEDS: RIVAROXABAN 10 MG TABLET PO SCH (09:11)
[2017-10-28] MEDS: FE SULF/FA/VIT B COMP & C TAB PO SCH (09:11)
[2017-10-28] MEDS ORDERED: CYANOCOBALAMIN 1000MCG/ML INJ IM ONE (11:45)
--- NOTE | 2017-10-28 11:45 | P.PN ---
Subjective Date of Service: 10/28/17 Primary Care Provider: unknown Subjective: Doing well (Doing well. Working with physical therapy.. Awaiting inpatient rehab acceptance.) Physical Examination - Vital Signs Temperature: 97.7 F Blood Pressure: 129/58 Pulse: 67 Respirations: 18 Pulse Ox (%): 96 - Physical Exam General: Alert, In no apparent distress, Oriented x3, Cooperative HEENT: Atraumatic Neck: Supple Respiratory: Clear to auscultation bilaterally, Normal air movement Cardiovascular: Normal pulses, Regular rate/rhythm Gastrointestinal: Normal bowel sounds, Soft and benign, Non-distended Musculoskeletal: No erythema, No tenderness, No warmth Integumentary: No erythema, No warmth, No cyanosis Neurological: Normal speech, Normal strength at 5/5 x4 extr, Normal tone, Normal affect - Studies Medications List Reviewed: Yes Assessment & Plan - Problems (Diagnosis) (1) Anemia Current Visit: Yes Status: Acute Plan: Anemia stable status post surgery. Iron and B12 deficiency noted provide supplementation. Qualifiers: Anemia type: other cause (2) Fracture, intertrochanteric, left femur Onset Date: 10/27/17 Current Visit: Yes Status: Acute Plan: Status post surgery. Patient responding well to physical therapy. Case discussed with social media strategist. Awaiting inpatient rehab acceptance Qualifiers: Encounter type: initial encounter Fracture type: closed (3) Hypomagnesemia Onset Date: 10/27/17 Current Visit: Yes Status: Acute Plan: Continue monitor and adjust appropriately. (4) Tachycardia Current Visit: Yes Status: Acute Plan: Patient had tachycardia post operatively. Patient doing well with beta- camila. Will continue monitor closely. Discharge Plan: Other (Inpatient rehab) Plan to discharge in: 24 Hours Time Spent Managing Pts Care (In Minutes): 55
[2017-10-28] MEDS: FERROUS SULFATE 325 MG TAB PO SCH (20:10)
[2017-10-29] MEDS: METOPROLOL TAR 25 MG TAB PO SCH ×2 (05:15→17:19)
[2017-10-29] MEDS: HYDROCODONE/APAP 7.5/325 MG TAB PO PRN ×4 (05:16→17:18)
[2017-10-29] MEDS: RIVAROXABAN 10 MG TABLET PO SCH (09:34)
[2017-10-29] MEDS: CYANOCOBALAMIN 1,000 MCG TAB PO SCH (09:35)
[2017-10-29] MEDS: FERROUS SULFATE 325 MG TAB PO SCH ×2 (09:35→20:42)
[2017-10-29] MEDS: FE SULF/FA/VIT B COMP & C TAB PO SCH (09:35)
--- NOTE | 2017-10-29 09:48 | P.PN ---
Subjective Date of Service: 10/29/17 Primary Care Provider: unknown Subjective: Improving (Patient is slowly improving with physical therapy. Patient still require some assistance.) Physical Examination - Vital Signs Temperature: 98.1 F Blood Pressure: 128/58 Pulse: 92 Respirations: 16 Pulse Ox (%): 92 - Physical Exam General: Alert, In no apparent distress, Oriented x3, Cooperative HEENT: Atraumatic Neck: Supple Respiratory: Clear to auscultation bilaterally, Normal air movement Cardiovascular: Normal pulses, Regular rate/rhythm Gastrointestinal: Normal bowel sounds, Soft and benign, Non-distended, No tenderness, No masses, No rebound, No guarding Musculoskeletal: No erythema, No tenderness, No warmth Integumentary: No tenderness/swelling, No erythema, No warmth, No cyanosis Neurological: Normal speech, Normal strength at 5/5 x4 extr, Normal tone, Normal affect - Studies Medications List Reviewed: Yes Assessment & Plan - Problems (Diagnosis) (1) Anemia Current Visit: Yes Status: Acute Plan: Anemia stable status post surgery. Iron and B12 deficiency noted, will continue with supplementation. Qualifiers: Anemia type: other cause (2) Fracture, intertrochanteric, left femur Onset Date: 10/27/17 Current Visit: Yes Status: Acute Plan: Status post surgery. Patient responding well to physical therapy. I spoke to spanish medical interpreter for insurance on a Peer to Peer to approve inpatient rehab. Patient is denied but spanish medical interpreter will approve skilled placement. Patient agrees to skilled placement. Will discuss with social sciences chair to see if this can be arranged. She prefers to be near family in the [facility]. Will need to pursue skilled placement in [place], [place]. Qualifiers: Encounter type: initial encounter Fracture type: closed (3) Hypomagnesemia Onset Date: 10/27/17 Current Visit: Yes Status: Acute Plan: Continue monitor and adjust appropriately. (4) Tachycardia Current Visit: Yes Status: Acute Plan: Patient had tachycardia post operatively. Patient doing well with beta- camila. Will continue monitor closely. Discharge Plan: Other (Skilled placement facility) Plan to discharge in: 24 Hours Time Spent Managing Pts Care (In Minutes): 55
--- NOTE | 2017-10-29 14:47 | RAD REPORT ---
EXAM DESCRIPTION: RAD - Hip Left 2 View - 10/29/2017 2:42 pm CLINICAL HISTORY: Positional left pain/ Post IM nailing on 10/23 Hip pain COMPARISON: Hip Left 2 View dated 10/22/2017 FINDINGS: A proximal femoral nail has been placed reducing the previous fracture the proximal left f emur. Fracture lucency persists. Lesser trochanteric fragment remains displaced somewhat superiorly. No unusual or unexpected hardware finding. Skin hernesto are seen laterally.
[2017-10-30] MEDS: METOPROLOL TAR 25 MG TAB PO SCH ×2 (05:26→17:06)
[2017-10-30] MEDS: FERROUS SULFATE 325 MG TAB PO SCH ×2 (09:00→21:05)
[2017-10-30] MEDS: HYDROCODONE/APAP 7.5/325 MG TAB PO PRN ×3 (09:28→17:06)
[2017-10-30] MEDS: CETIRIZINE HCL 5 MG TABLET PO SCH (09:29)
[2017-10-30] MEDS: CYANOCOBALAMIN 1,000 MCG TAB PO SCH (09:29)
[2017-10-30] MEDS: FE SULF/FA/VIT B COMP & C TAB PO SCH (09:29)
[2017-10-30] MEDS: RIVAROXABAN 10 MG TABLET PO SCH (09:29)
[2017-10-30] MEDS: FLUTICASONE 50MCG NASAL SPRAY NAS SCH ×2 (09:30→21:00)
--- NOTE | 2017-10-30 10:41 | P.PN ---
Subjective Date of Service: 10/30/17 Primary Care Provider: unknown Subjective: Other (Patient with mild sore throat and nasal congestion. Patient reported some pain to the left hip with physical therapy yesterday.) Physical Examination - Vital Signs Temperature: 99.1 F Blood Pressure: 135/60 Pulse: 77 Respirations: 16 Pulse Ox (%): 95 - Physical Exam General: Alert, In no apparent distress, Oriented x3, Cooperative HEENT: Atraumatic Neck: Supple Respiratory: Clear to auscultation bilaterally, Normal air movement Cardiovascular: Normal pulses, Regular rate/rhythm Gastrointestinal: Normal bowel sounds, Soft and benign, Non-distended, No masses , No rebound, No guarding Musculoskeletal: No tenderness, No warmth Integumentary: No erythema, No warmth, No cyanosis Neurological: Normal speech, Normal strength at 5/5 x4 extr, Normal tone, Normal affect - Studies Medications List Reviewed: Yes Assessment & Plan - Problems (Diagnosis) (1) Anemia Current Visit: Yes Status: Acute Plan: Anemia stable status post surgery. Iron and B12 deficiency noted, will continue with supplementation. Qualifiers: Anemia type: other cause (2) Fracture, intertrochanteric, left femur Onset Date: 10/27/17 Current Visit: Yes Status: Acute Plan: Status post surgery. Patient responding well to physical therapy. The patient reported some pain with physical therapy yesterday. Repeat x-ray shows no significant abnormality. Patient currently being assessed for skilled placement. Will discuss with orthopedics about her pain. Qualifiers: Encounter type: initial encounter Fracture type: closed (3) Hypomagnesemia Onset Date: 10/27/17 Current Visit: Yes Status: Acute Plan: Continue monitor and adjust appropriately. (4) Tachycardia Current Visit: Yes Status: Acute Plan: Patient had tachycardia post operatively. Patient doing well with beta- camila. Will continue monitor closely. (5) Nasal congestion Current Visit: Yes Status: Acute Plan: Will provide Zyrtec and Flonase. Encourage incentive spirometer. Discharge Plan: Other (Skilled placement) Plan to discharge in: 24 Hours Time Spent Managing Pts Care (In Minutes): 55
--- NOTE | 2017-10-30 18:37 | RAD REPORT ---
EXAM DESCRIPTION: [facility]10/30/2017 6:28 pm CLINICAL HISTORY: left leg pain and swelling. COMPARISON: None. FINDINGS: Left common femoral, superficial femoral, popliteal and posterior tibial veins are compre ssible and demonstrate augmentation. Doppler demonstrates good flow. IMPRESSION: No evidence of deep venous thrombosis involving the left lower extremity.
--- NOTE | 2017-10-30 21:41 | P.PN ---
Date of Service: 10/28/17 (POD#5) S: PATIENT SITTING IN BEDSIDE CHAIR. PATIENT INDICATES THAT LIFTING THE LEFT HIP IS UNCOMFORTABLE WITH SOME SHARP TWINGES THAT ARE POSITIONAL. O: AFEBRILE, VSS, PATIENT WENT 100' IN AM, SOME CONCERN REGARDING PAINFUL SYMPTOMS 5 DAYS POSTOP. BANDAGE CLEAN AND DRY. NV EXAM INTACT. AFIA'S SIGN NEGATIVE A: PATIENT MAKING ADEQUATE PROGRESS POD#5, WITH SHORT NAIL FIXATION A FOLLOW- UP X-RAY WOULD BE REASSURING. P: CONTINUE MOBILIZATION. PENDING DECISION OF REHAB STAY. WE'LL REQUEST X-RAY OF LEFT HIP.
--- NOTE | 2017-10-30 21:55 | P.PN ---
Date of Service: 10/30/17 (POD#7) S: PATIENT SITTING IN BEDSIDE CHAIR. PATIENT WENT ENTIRE LAP AROUND FLOOR 270' . INDICATES ONE SN[facility] ACCEPTED CONTRACT PREMATURELY AND NOW HAS TO DISENGAGE SO SHE CAN GO TO FACILITY NEAR SON'S HOME IN [facility]. O: AFEBRILE, VSS, X-RAYS REASSURING WITH NO CHANGE IN POSITION OF IM NAIL. MOBILITY OF LESSER TROCH FRAGMENT PULLED BY ILIOPSOAS TENDON EFFORT IS LIKELY CAUSE OF DISCOMFORT. FRAGMENT ALWAYS SETTLES INTO CALLUS FORMATION AND BECOMES STABLE.. BANDAGE CLEAN AND DRY. NV EXAM INTACT. AFIA'S SIGN NEGATIVE A: PATIENT MAKING ADEQUATE PROGRESS POD#7. P: CONTINUE MOBILIZATION.
[2017-10-31] MEDS: HYDROCODONE/APAP 7.5/325 MG TAB PO PRN ×5 (00:07→22:00)
[2017-10-31] MEDS: METOPROLOL TAR 25 MG TAB PO SCH ×2 (05:43→17:46)
[2017-10-31] MEDS: FLUTICASONE 50MCG NASAL SPRAY NAS SCH ×2 (09:00→21:00)
[2017-10-31] MEDS: CETIRIZINE HCL 5 MG TABLET PO SCH (10:06)
[2017-10-31] MEDS: FE SULF/FA/VIT B COMP & C TAB PO SCH (10:07)
[2017-10-31] MEDS: FERROUS SULFATE 325 MG TAB PO SCH ×2 (10:07→21:00)
[2017-10-31] MEDS: CYANOCOBALAMIN 1,000 MCG TAB PO SCH (10:07)
[2017-10-31] MEDS: RIVAROXABAN 10 MG TABLET PO SCH (10:07)
--- NOTE | 2017-10-31 12:30 | P.PN ---
Subjective Date of Service: 10/31/17 Primary Care Provider: unknown Subjective: Doing well (Awaiting transfer to skilled facility.) Physical Examination - Vital Signs Temperature: 98.2 F Blood Pressure: 140/65 Pulse: 73 Respirations: 16 Pulse Ox (%): 94 - Physical Exam General: Alert, In no apparent distress, Oriented x3, Cooperative HEENT: Atraumatic Neck: Supple Respiratory: Clear to auscultation bilaterally, Normal air movement Cardiovascular: Normal pulses, Regular rate/rhythm Gastrointestinal: Normal bowel sounds, Soft and benign, Non-distended Musculoskeletal: No tenderness, No warmth Integumentary: Tenderness/swelling (Swelling to the left lower extremity stable. ) Neurological: Normal speech, Normal strength at 5/5 x4 extr, Normal tone, Normal affect - Studies Medications List Reviewed: Yes Assessment & Plan - Problems (Diagnosis) (1) Anemia Current Visit: Yes Status: Acute Plan: Anemia stable status post surgery. Iron and B12 deficiency noted, will continue with supplementation. Qualifiers: Anemia type: other cause (2) Fracture, intertrochanteric, left femur Onset Date: 10/27/17 Current Visit: Yes Status: Acute Plan: Status post surgery. Patient responding well to physical therapy. The patient reported some pain with physical therapy yesterday. Repeat x-ray shows no significant abnormality. Case discussed with orthopedics. Patient currently being assessed for skilled placement. Awaiting placement approval. continue DVT prophylaxis. Qualifiers: Encounter type: initial encounter Fracture type: closed (3) Hypomagnesemia Onset Date: 10/27/17 Current Visit: Yes Status: Acute Plan: Continue monitor and adjust appropriately. (4) Tachycardia Current Visit: Yes Status: Acute Plan: Patient had tachycardia post operatively. Patient doing well with beta- camila. Will continue monitor closely. (5) Nasal congestion Current Visit: Yes Status: Acute Plan: Will provide Zyrtec and Flonase. Encourage incentive spirometer. (6) Edema Current Visit: Yes Status: Acute Plan: Edema to the left lower extremity slightly improved. Repeat venous Doppler negative. Patient on DVT prophylaxis. Qualifiers: Edema type: unspecified Qualified Code(s): R60.9 - Edema, unspecified Discharge Plan: Other (Skilled placement) Plan to discharge in: 24 Hours Time Spent Managing Pts Care (In Minutes): 55
[2017-10-31 16:08] LABS: Magnesium 1.7 mg/dL (1.8-2.4); Potassium 4.3 mmol/L (3.5-5.1)
[2017-11-01] MEDS: METOPROLOL TAR 25 MG TAB PO SCH ×2 (05:57→17:41)
[2017-11-01] MEDS: HYDROCODONE/APAP 7.5/325 MG TAB PO PRN ×3 (05:58→17:41)
[2017-11-01] MEDS ORDERED: MAGNESIUM SULFATE 1 gm IVPB 1 GM/100 ML BAG IV ONE (06:30)
[2017-11-01] MEDS: NA CHLORIDE 0.9% 100 ML ONE (06:40)
--- NOTE | 2017-11-01 07:20 | P.PN ---
Subjective Date of Service: 11/01/17 Primary Care Provider: unknown Subjective: Doing well (Awaiting skilled placement approval) Physical Examination - Vital Signs Temperature: 97.2 F Blood Pressure: 132/61 Pulse: 81 Respirations: 18 Pulse Ox (%): 96 - Physical Exam General: Alert, In no apparent distress, Oriented x3, Cooperative HEENT: Atraumatic Neck: Supple Respiratory: Clear to auscultation bilaterally, Normal air movement Cardiovascular: Normal pulses, Regular rate/rhythm Gastrointestinal: Normal bowel sounds, Soft and benign, Non-distended, No masses , No rebound, No guarding Musculoskeletal: No tenderness, No warmth Integumentary: No cyanosis, Other (Swelling to the left lower extremity slightly unchanged. Some ecchymosis noted likely depended edema.) Neurological: Normal speech, Normal strength at 5/5 x4 extr, Normal tone, Normal affect - Studies Medications List Reviewed: Yes Assessment & Plan - Problems (Diagnosis) (1) Anemia Current Visit: Yes Status: Acute Plan: Anemia stable status post surgery. Iron and B12 deficiency noted, will continue with supplementation. Awaiting skilled placement acceptance. When I last discussed with medical screener for the insurance, the patient was accepted to go to a skilled facility. Awaiting acceptance to a facility near family. Qualifiers: Anemia type: other cause (2) Fracture, intertrochanteric, left femur Onset Date: 10/27/17 Current Visit: Yes Status: Acute Plan: Status post surgery. Patient responding well to physical therapy. Continue with DVT prophylaxis. Awaiting skilled placement approval. Qualifiers: Encounter type: initial encounter Fracture type: closed (3) Hypomagnesemia Onset Date: 10/27/17 Current Visit: Yes Status: Acute Plan: Continue monitor and adjust appropriately. (4) Tachycardia Current Visit: Yes Status: Acute Plan: Patient had tachycardia post operatively. Patient doing well with beta- camila. Will continue monitor closely. (5) Nasal congestion Current Visit: Yes Status: Acute Plan: Will continue with Zyrtec and Flonase. Encourage incentive spirometer. (6) Edema Current Visit: Yes Status: Acute Plan: Edema to the left lower extremity slightly improved. Repeat venous Doppler negative. Ecchymoses likely from procedure. Elevate leg when sitting or lying. Patient on DVT prophylaxis. Qualifiers: Edema type: unspecified Qualified Code(s): R60.9 - Edema, unspecified Discharge Plan: Other (Skilled placement facility) Plan to discharge in: 24 Hours Time Spent Managing Pts Care (In Minutes): 55
[2017-11-01] MEDS: FE SULF/FA/VIT B COMP & C TAB PO SCH (08:00)
[2017-11-01] MEDS: FLUTICASONE 50MCG NASAL SPRAY NAS SCH ×2 (09:00→20:51)
[2017-11-01] MEDS: CETIRIZINE HCL 5 MG TABLET PO SCH (10:41)
[2017-11-01] MEDS: CYANOCOBALAMIN 1,000 MCG TAB PO SCH (10:41)
[2017-11-01] MEDS: FERROUS SULFATE 325 MG TAB PO SCH ×2 (10:41→20:50)
[2017-11-01] MEDS: RIVAROXABAN 10 MG TABLET PO SCH (10:41)
[2017-11-02] MEDS: HYDROCODONE/APAP 7.5/325 MG TAB PO PRN ×3 (00:45→20:16)
[2017-11-02 05:18] LABS: BUN Blood Urea Nitrogen 12 mg/dL (7-18); Bicarbonate 29 mmol/L (21-32); Glucose Level 92 mg/dL (74-106); Magnesium 1.6 mg/dL (1.8-2.4); Potassium 4.2 mmol/L (3.5-5.1); Sodium Level 135 mmol/L (136-145)
[2017-11-02] MEDS: METOPROLOL TAR 25 MG TAB PO SCH ×2 (05:24→17:07)
[2017-11-02] MEDS ORDERED: NA CHLORIDE 0.9% 100 ML ONE (06:38)
[2017-11-02] MEDS: NA CHLORIDE 0.9% 100 ML ONE (06:44)
[2017-11-02] MEDS ORDERED: MAGNESIUM SULFATE 1 gm IVPB 1 GM/100 ML BAG IV ONE (07:00)
--- NOTE | 2017-11-02 08:08 | P.PN ---
Subjective Date of Service: 11/02/17 Primary Care Provider: unknown Subjective: Doing well Physical Examination - Vital Signs Temperature: 98.1 F Blood Pressure: 141/65 Pulse: 77 Respirations: 18 Pulse Ox (%): 95 - Physical Exam General: Alert, In no apparent distress, Oriented x3, Cooperative HEENT: Atraumatic Neck: Supple Respiratory: Clear to auscultation bilaterally, Normal air movement Cardiovascular: Normal pulses, Regular rate/rhythm Gastrointestinal: Normal bowel sounds, Soft and benign, Non-distended, No masses , No rebound, No guarding Musculoskeletal: No erythema, No tenderness, No warmth Integumentary: Tenderness/swelling (Swelling to the left lower extremity unchanged.) Neurological: Normal speech, Normal strength at 5/5 x4 extr, Normal tone, Normal affect - Studies Medications List Reviewed: Yes Assessment & Plan - Problems (Diagnosis) (1) Anemia Current Visit: Yes Status: Acute Plan: Anemia stable status post surgery. Iron and B12 deficiency noted, will continue with supplementation. Awaiting skilled placement acceptance. When I last discussed with medical social worker for the insurance, the patient was accepted to go to a skilled facility. Awaiting acceptance to a facility near family. Spoke with nursing home social worker yesterday. Anticipate likely transfer on Friday. Qualifiers: Anemia type: other cause (2) Fracture, intertrochanteric, left femur Onset Date: 10/27/17 Current Visit: Yes Status: Acute Plan: Status post surgery. Patient responding well to physical therapy. Continue with DVT prophylaxis. Awaiting skilled placement acceptance. Likely Friday. Qualifiers: Encounter type: initial encounter Fracture type: closed (3) Hypomagnesemia Onset Date: 10/27/17 Current Visit: Yes Status: Acute Plan: Continue monitor and adjust appropriately. (4) Tachycardia Current Visit: Yes Status: Acute Plan: Patient had tachycardia post operatively. Patient doing well with beta- camila. Will continue monitor closely. (5) Nasal congestion Current Visit: Yes Status: Acute Plan: Will continue with Zyrtec and Flonase. Encourage incentive spirometer. (6) Edema Current Visit: Yes Status: Acute Plan: Edema to the left lower extremity slightly improved. Repeat venous Doppler negative. Ecchymoses likely from procedure. Continue to Elevate leg when sitting or lying. Patient on DVT prophylaxis. Qualifiers: Edema type: unspecified Qualified Code(s): R60.9 - Edema, unspecified Discharge Plan: Other (Skilled placement facility) Plan to discharge in: 24 Hours Time Spent Managing Pts Care (In Minutes): 55
[2017-11-02] MEDS: FERROUS SULFATE 325 MG TAB PO SCH ×2 (08:49→20:16)
[2017-11-02] MEDS: CYANOCOBALAMIN 1,000 MCG TAB PO SCH (08:49)
[2017-11-02] MEDS: FLUTICASONE 50MCG NASAL SPRAY NAS SCH ×2 (08:49→20:17)
[2017-11-02] MEDS: CETIRIZINE HCL 5 MG TABLET PO SCH (08:49)
[2017-11-02] MEDS: RIVAROXABAN 10 MG TABLET PO SCH (08:49)
[2017-11-02] MEDS: FE SULF/FA/VIT B COMP & C TAB PO SCH (08:49)
[2017-11-03 05:22] LABS: BUN Blood Urea Nitrogen 11 mg/dL (7-18); Bicarbonate 29 mmol/L (21-32); Glucose Level 91 mg/dL (74-106); Magnesium 1.7 mg/dL (1.8-2.4); Potassium 4.3 mmol/L (3.5-5.1); Sodium Level 136 mmol/L (136-145)
[2017-11-03] MEDS: METOPROLOL TAR 25 MG TAB PO SCH (05:40)
[2017-11-03] MEDS ORDERED: MAGNESIUM SULFATE 1 gm IVPB 1 GM/100 ML BAG IV ONE (06:42)
[2017-11-03] MEDS: FE SULF/FA/VIT B COMP & C TAB PO SCH ×2 (08:00→09:24)
[2017-11-03] MEDS: FLUTICASONE 50MCG NASAL SPRAY NAS SCH (09:00)
[2017-11-03] MEDS: RIVAROXABAN 10 MG TABLET PO SCH (09:25)
[2017-11-03] MEDS: FERROUS SULFATE 325 MG TAB PO SCH (09:25)
[2017-11-03] MEDS: CYANOCOBALAMIN 1,000 MCG TAB PO SCH (09:25)
[2017-11-03] MEDS: CETIRIZINE HCL 5 MG TABLET PO SCH (09:25)
[2017-11-03] MEDS: HYDROCODONE/APAP 7.5/325 MG TAB PO PRN ×2 (09:43→15:03)
--- NOTE | 2017-11-03 10:39 | P.PN ---
Subjective Date of Service: 11/03/17 Primary Care Provider: unknown Subjective: Doing well Physical Examination - Vital Signs Temperature: 98.5 F Blood Pressure: 148/67 Pulse: 78 Respirations: 18 Pulse Ox (%): 94 - Physical Exam General: Alert, In no apparent distress, Oriented x3, Cooperative HEENT: Atraumatic Neck: Supple Respiratory: Clear to auscultation bilaterally, Normal air movement Cardiovascular: Normal pulses, Regular rate/rhythm Gastrointestinal: Normal bowel sounds, Soft and benign, Non-distended, No tenderness, No masses, No rebound, No guarding Musculoskeletal: No tenderness, No warmth Integumentary: Tenderness/swelling (Swelling to the left lower extremity stable) Neurological: Normal speech, Normal strength at 5/5 x4 extr, Normal tone, Normal affect Lymphatics: No axilla or inguinal lymphadenopathy - Studies Medications List Reviewed: Yes Assessment & Plan - Problems (Diagnosis) (1) Anemia Current Visit: Yes Status: Acute Plan: Anemia stable status post surgery. Iron and B12 deficiency noted, will continue with supplementation. Awaiting skilled placement acceptance. When I last discussed with center medical and lab director for the insurance, the patient was accepted to go to a skilled facility. Anticipate discharge today. Qualifiers: Anemia type: other cause (2) Fracture, intertrochanteric, left femur Onset Date: 10/27/17 Current Visit: Yes Status: Acute Plan: Status post surgery. Patient responding well to physical therapy. Continue with DVT prophylaxis. Awaiting skilled placement acceptance. Anticipate discharge today. Qualifiers: Encounter type: initial encounter Fracture type: closed (3) Hypomagnesemia Onset Date: 10/27/17 Current Visit: Yes Status: Acute Plan: Continue monitor and adjust appropriately. (4) Tachycardia Current Visit: Yes Status: Acute Plan: Patient had tachycardia post operatively. Patient doing well with beta- camila. Will continue monitor closely. (5) Nasal congestion Current Visit: Yes Status: Acute Plan: Will continue with Zyrtec and Flonase. Encourage incentive spirometer. (6) Edema Current Visit: Yes Status: Acute Plan: Edema to the left lower extremity slightly improved. Repeat venous Doppler negative. Ecchymoses likely from procedure. Continue to Elevate leg when sitting or lying. Patient on DVT prophylaxis. Qualifiers: Edema type: unspecified Qualified Code(s): R60.9 - Edema, unspecified (7) Hypertension Current Visit: Yes Status: Suspected Plan: Suspect underlying hypertension. Patient stable on metoprolol. Qualifiers: Hypertension type: essential hypertension Qualified Code(s): I10 - Essential (primary) hypertension Discharge Plan: Other (Skilled placement facility) Plan to discharge in: 24 Hours Time Spent Managing Pts Care (In Minutes): 55
--- NOTE | 2017-11-03 12:53 | P.PN ---
Date of Service: 11/03/17 (POD#11) S: PATIENT IN BED. C/O PAIN WITH TRYING TO LIFT LLE BACK INTO BED FROM SITTING ON EDGE. INDICATES SNU CONTRACTS STILL SNARLED. PLANNING TO GO TO FACILITY NEAR SON'S HOME IN [facility]. O: AFEBRILE, VSS, MOBILITY OF LESSER TROCH FRAGMENT PULLED BY ILIOPSOAS TENDON EFFORT IS CAUSE OF DISCOMFORT WITH FORCEFUL LEFT EFFORT. BEST TO USE SUPPORT FROM OTHER LEG WITH RIGHT FOOT UNDER LEFT ANKLE PLUS PASSIVE ASSIST UNTIL 4 WEEKS POST OP. FRAGMENT WILL SETTLE INTO CALLUS FORMATION AND BECOME STABLE. OPENED AQUACEL BANDAGE, OK TO REMOVE MAYRA AND APPLY NEW AQUACEL AFTER ALCOHOL SWABS. NV EXAM INTACT. AFIA'S SIGN NEGATIVE A: PATIENT MAKING ADEQUATE PROGRESS POD#11. P: CONTINUE MOBILIZATION. TRANSFER TO SNU IMMINENT.
--- NOTE | 2017-11-03 13:11 | P.DS ---
Admission Date: 10/22/17 Discharge Date: 11/03/17 Primary Care Provider: unknown Disposition: TRANSFER TO SNF - MEDICAL Discharge Condition: GOOD Consultations: Orthopedics-Dr. Singh Procedures: Surgery: Date to procedure: 10/23/2017 Preop diagnosis: left intertrochanteric fracture of the proximal femur. Postoperative diagnosis: same Primary procedure: nail fixation for left hip truck truck anterior proximal femur fracture - Problems (1) Anemia Current Visit: Yes Status: Acute Qualifiers: Anemia type: other cause (2) Fracture, intertrochanteric, left femur Onset Date: 10/27/17 Current Visit: Yes Status: Acute Qualifiers: Encounter type: initial encounter Fracture type: closed (3) Hypomagnesemia Onset Date: 10/27/17 Current Visit: Yes Status: Acute (4) Tachycardia Current Visit: Yes Status: Acute (5) Nasal congestion Current Visit: Yes Status: Acute (6) Edema Current Visit: Yes Status: Acute Qualifiers: Edema type: unspecified Qualified Code(s): R60.9 - Edema, unspecified (7) Hypertension Current Visit: Yes Status: Suspected Qualifiers: Hypertension type: essential hypertension Qualified Code(s): I10 - Essential (primary) hypertension Brief History of Present Illness: 87-year-old female presented to the emergency room with a fall. She was found to have a left intratrochanteric femur fracture proximally. The patient was admitted for treatment. Hospital Course: The patient presented with a fall. Patient found to have a left intertrochanteric femur fracture. Patient was evaluated by orthopedics. Orthopedics recommended surgery. Nail fixation for left femur fracture was done. Patient tolerated procedure well. Patient performed well with physical therapy. She was denied acceptance to inpatient rehab. However the patient was accepted to go to a skilled facility. At discharge she will continue with therapy. Patient will continue with DVT prophylaxis Xarelto 10 mg one pill daily for 15 more days. She will be provided a limited supply of Tramadol 50 mg one pill three times a day as needed for pain. Recommendations for the patient to follow up with orthopedics in 2 weeks to follow up her care. Patient was found to have some tachycardia during her stay. Blood pressures was also elevated. Patient likely with underlying hypertension. During the course of her stay she was placed on beta-camila therapy. Patient did well. At discharge she will continue with metoprolol 25 mg 1 pill twice daily. Recommendation is to maintain blood pressures less 150/80. Further adjustment can be done by her PCP. Patient was anemic post operatively. Patient found to have iron and B12 deficiency. At discharge, patient will continue with iron 325 mg 1 pill twice daily and B12 1000 mcg daily. Recommendation is to recheck CBC in 1-2 weeks to monitor progress. Patient had some postoperative swelling to the left lower extremity. Patient during the course of her stay she had 2 venous dopplers to assess for blood clot. Both were negative. Patient will need to elevate her leg when sitting or cyst standing. This can be follow up as an outpatient. Patient has mild nasal congestion. She will continue with Flonase 1 spray per nostril twice daily. She may take Zyrtec OTC as needed daily. Vital Signs/Physical Exam: Temp Pulse Resp BP Pulse Ox 98.5 F 78 18 148/67 H 94 11/03/17 10:39 11/03/17 10:39 11/03/17 10:39 11/03/17 10:39 11/03/17 10:39 General: Alert, In no apparent distress, Oriented x3, Cooperative HEENT: Atraumatic Neck: Supple Respiratory: Clear to auscultation bilaterally, Normal air movement Cardiovascular: Normal pulses, Regular rate/rhythm Gastrointestinal: Normal bowel sounds, Soft and benign, Non-distended, No tenderness, No masses, No rebound, No guarding Musculoskeletal: No erythema, No tenderness, No warmth Integumentary: Tenderness/swelling (swelling to the LLL but unchanged. ) Neurological: Normal speech, Normal strength at 5/5 x4 extr, Normal tone, Normal affect Laboratory Data at Discharge: WBC 8.3 K/uL (4.3-10.9) 10/27/17 04:16 Hgb 9.0 g/dL (12.0-15.0) L 10/27/17 04:16 Hct 25.9 % (36.0-45.0) L 10/27/17 04:16 Plt Count 193 K/uL (152-406) D 10/27/17 04:16 PT 11.6 SECONDS (9.5-12.5) 10/22/17 15:08 INR 0.98 10/22/17 15:08 APTT 22.8 SECONDS (24.3-36.9) L 10/22/17 15:08 Sodium 136 mmol/L (136-145) 11/03/17 04:30 Potassium 4.3 mmol/L (3.5-5.1) 11/03/17 04:30 BUN 11 mg/dL (7-18) 11/03/17 04:30 Creatinine 0.60 mg/dL (0.55-1.3) 11/03/17 04:30 Glucose 91 mg/dL (74-106) 11/03/17 04:30 Magnesium 1.7 mg/dL (1.8-2.4) L 11/03/17 04:30 Total Bilirubin 0.8 mg/dL (0.2-1.0) 10/27/17 04:16 AST 17 U/L (15-37) 10/27/17 04:16 ALT 21 U/L (12-78) 10/27/17 04:16 Alkaline Phosphatase 70 U/L (45-117) 10/27/17 04:16 Home Medications: Cyanocobalamin [Vitamin B-12*] 1,000 mcg PO DAILY #30 tab 11/03/17 Docusate [Colace Cap*] 100 mg PO DAILY PRN #15 cap 11/03/17 Ferrous Sulfate [Ferrous Sulfate*] 325 mg PO BID #60 tab 11/03/17 Metoprolol Tartrate [Lopressor*] 25 mg PO BID 6AM 6PM #60 tab 11/03/17 Rivaroxaban [Xarelto*] 10 mg PO DAILY #15 tablet 11/03/17 Tramadol HCl [Ultram] 50 mg PO TID PRN #30 tablet 11/03/17 New Medications: Cyanocobalamin [Vitamin B-12*] 1,000 mcg PO DAILY #30 tab Docusate [Colace Cap*] 100 mg PO DAILY PRN #15 cap PRN Reason: Constipation Ferrous Sulfate [Ferrous Sulfate*] 325 mg PO BID #60 tab Metoprolol Tartrate [Lopressor*] 25 mg PO BID 6AM 6PM #60 tab Rivaroxaban [Xarelto*] 10 mg PO DAILY #15 tablet Tramadol HCl [Ultram] 50 mg PO TID PRN #30 tablet PRN Reason: Pain Patient Discharge Instructions: 1. Patient will go to skilled facility to continue her rehabilitation. 2. The patient presented with a fall. Patient found to have a left intertrochanteric femur fracture. Patient was evaluated by orthopedics. Orthopedics recommended surgery. Nail fixation for left femur fracture was done. Patient tolerated procedure well. Patient performed well with physical therapy. She was denied acceptance to inpatient rehab. However the patient was accepted to go to a skilled facility. At discharge she will continue with therapy at skilled facility in [place], [place]. Patient will continue with DVT prophylaxis Xarelto 10 mg one pill daily for 15 more days. She will be provided a limited supply of Tramadol 50 mg one pill three times a day as needed for pain. Recommendations for the patient to follow up with orthopedics in 2 weeks to follow up her care. 3. Patient was found to have some tachycardia during her stay. Blood pressures was also elevated. Patient likely with underlying hypertension. During the course of her stay she was placed on beta-camila therapy. Patient did well. At discharge she will continue with metoprolol 25 mg 1 pill twice daily. Recommendation is to maintain blood pressures less 150/80. Further adjustment can be done by her PCP. 4. Patient was anemic post operatively. Patient found to have iron and B12 deficiency. At discharge, patient will continue with iron 325 mg 1 pill twice daily and B12 1000 mcg daily. Recommendation is to recheck CBC in 1-2 weeks to monitor progress. 5. Patient had some postoperative swelling to the left lower extremity. Patient during the course of her stay she had 2 venous dopplers to assess for blood clot. Both were negative. Patient will need to elevate her leg when sitting or cyst standing. This can be follow up as an outpatient. 6. Patient has mild nasal congestion. She will continue with Flonase 1 spray per nostril twice daily. She may take Zyrtec OTC as needed daily. Diet: AHA Activity: Fall precautions Time spent managing pt's care (in minutes): 55
== END 2017-11-03 16:40 | DRG 482 ==
LOC: ER 15:00 → ERHOLD 17:59 → 2ND 19:30 → 4TH 10-31 21:27
PROVIDERS: ADMIT Family Medicine; ATTEND Family Medicine
PROC: 0QS736Z Reposition Left Upper Femur with Intramedullary Internal Fixation Device, Percutaneous Approach (ICD-10-PCS; principal; 2017-10-23 12:30)
DX: S72.142A Displaced intertrochanteric fracture of left femur, initial encounter for closed fracture (principal); W01.0XXA Fall on same level from slipping, tripping and stumbling without subsequent striking against object, initial encounter; Y92.096 Garden or yard of other non-institutional residence as the place of occurrence of the external cause; E83.42 Hypomagnesemia; R00.0 Tachycardia, unspecified; D50.9 Iron deficiency anemia, unspecified; D51.3 Other dietary vitamin B12 deficiency anemia; R09.81 Nasal congestion; R60.0 Localized edema
CPT/HCPCS: 36415; 71045; 72170; 73530; 80048; 80053; 80076; 81003; 82550; 82553; 82607; 82728; 83540; 83735; 83880; 84466; 84484; 85014; 85018; 85025; 85610; 85730; 86850; 86900; 86901; 93005; 93971; 94760; 96374; 96375; 97163; 99285; J0690; J2175; J2405; J3010; J3420; J3475

== ENCOUNTER 2018-12-26 19:17 | Inpatient (IN) | payer OTHER ==
[2018-12-26] MEDS ORDERED: NA CHLORIDE 0.9% 1,000 ML ONE (19:52)
[2018-12-26 20:34] LABS: Absolute Lymphocytes (CBC) 0.3 K/uL (0.7-4.9); Basophils % 0.1 % (0-1.3); Lymphocytes % 1.8 % (15.3-44.8); RBC Red Blood Cell Count 4.18 M/uL (3.86-4.86)
[2018-12-26 20:38] LABS: Albumin 3.4 g/dL (3.4-5.0); Bilirubin Direct 0.2 mg/dL (0-0.2); Bilirubin Total 0.6 mg/dL (0.2-1.0); Potassium 3.8 mmol/L (3.5-5.1); Protein, Total 6.5 g/dL (6.4-8.2)
[2018-12-26 21:43] LABS: Blood Morphology Comment NOTED (NOT SEEN); Platelet Estimate ADEQ
[2018-12-26 21:44] LABS: Burr Cells 1+
[2018-12-26] MEDS ORDERED: IBUPROFEN 400 MG TAB ONE (22:45)
[2018-12-26] MEDS ORDERED: IBUPROFEN 200 MG TAB PO ONE (22:45)
[2018-12-26] MEDS ORDERED: ACETAMINOPHEN 500 MG TAB ONE (22:46)
[2018-12-26] MEDS ORDERED: PIPER/TAZO/NS 3.375gm 3.375 GM/100 ML BAG ONE (22:46)
--- NOTE | 2018-12-27 00:47 | EDPHYS ---
Physician Documentation [facility] Name: Katherin Arcos Age: 88 yrs Sex: Female : 1930 Arrival Date: 12/26/2018 Time: 19:18 Bed 18 Private MD: ED Physician Mando Mcleod HPI: 12/26 21:03 This 88 yrs old Female presents to ER via Ambulatory with complaints of tw4 Vomiting/Diarrhea. 21:03 The patient presents to the emergency department with nausea, vomiting, Onset: The tw4 symptoms/episode began/occurred today. Possible causes: unknown. The symptoms are aggravated by nothing. The symptoms are alleviated by nothing. Associated signs and symptoms: The patient has no apparent associated signs or symptoms. Severity of symptoms: At their worst the symptoms were moderate in the emergency department the symptoms are unchanged. The patient has not experienced similar symptoms in the past. Historical: - Allergies: 19:43 No Known Allergies; aj1 - Home Meds: 19:43 blood pressure medicine [Active]; aj1 - PMHx: 19:43 Hypertension; aj1 - Immunization history:: Flu vaccine is not up to date. - Social history:: Smoking status: Patient/guardian denies using tobacco. - Ebola Screening: : Patient denies travel to an Ebola-affected area in the 21 days before illness onset. ROS: 21:03 Constitutional: Negative for fever, chills, and weight loss, Eyes: Negative for injury, tw4 pain, redness, and discharge, Cardiovascular: Negative for chest pain, palpitations, and edema, Respiratory: Negative for shortness of breath, cough, wheezing, and pleuritic chest pain, Back: Negative for injury and pain, MS/Extremity: Negative for injury and deformity, Skin: Negative for injury, rash, and discoloration, Neuro: Negative for headache, weakness, numbness, tingling, and seizure. 21:03 Abdomen/GI: Positive for nausea and vomiting, nausea, vomiting, and diarrhea, nausea, vomiting, diarrhea. Exam: 21:03 Constitutional: This is a well developed, well nourished patient who is awake, alert, tw4 and in no acute distress. Head/Face: Normocephalic, atraumatic. Chest/axilla: Normal chest wall appearance and motion. Nontender with no deformity. No lesions are appreciated. Cardiovascular: Regular rate and rhythm with a normal S1 and S2. No gallops, murmurs, or rubs. Normal PMI, no JVD. No pulse deficits. Respiratory: Lungs have equal breath sounds bilaterally, clear to auscultation and percussion. No rales, rhonchi or wheezes noted. No increased work of breathing, no retractions or nasal flaring. Abdomen/GI: Soft, non-tender, with normal bowel sounds. No distension or tympany. No guarding or rebound. No evidence of tenderness throughout. Back: No spinal tenderness. No costovertebral tenderness. Full range of motion. MS/ Extremity: Pulses equal, no cyanosis. Neurovascular intact. Full, normal range of motion. Neuro: Awake and alert, GCS 15, oriented to person, place, time, and situation. Cranial nerves II-XII grossly intact. Motor strength 5/5 in all extremities. Sensory grossly intact. Cerebellar exam normal. Normal gait. Vital Signs: 19:43 BP 127 / 66; Pulse 91; Resp 18; Temp 99.3; Pulse Ox 95% on R/A; Weight 54.43 kg (R); aj1 Height 5 ft. 5 in. (165.10 cm) (R); Pain 5/10; 20:20 BP 113 / 59; Pulse 92; Resp 18; Pulse Ox 98% ; mt 21:15 BP 113 / 56; Pulse 86; Resp 18; Temp 98.5(O); Pulse Ox 98% on R/A; ea 22:25 BP 148 / 93; Pulse 78; Resp 16; Pulse Ox 99% on R/A; mt 22:50 BP 133 / 105; Pulse 120; Resp 22; Temp 103.7; Pulse Ox 95% ; ea 23:00 BP 104 / 51; Pulse 111; Resp 19; Pulse Ox 100% ; ea 23:41 BP 100 / 50; Pulse 101; Resp 19; Temp 101.6; Pulse Ox 100% ; ea 10 00:40 BP 102 / 88; Pulse 80; Resp 18; Temp 99.7; Pulse Ox 98% ; ea 01:50 BP 96 / 41; Pulse 98; Resp 18; Pulse Ox 99% on R/A; ea 03:00 BP 92 / 50; Pulse 100; Resp 18; Pulse Ox 100% ; ea 04:51 BP 81 / 41; Pulse 96; Resp 18; Pulse Ox 98% on R/A; ea 05:30 BP 99 / 56; Pulse 113; Resp 18; Temp 98.5; Pulse Ox 100% ; ea 06:15 BP 99 / 56; Pulse 110; Resp 18; Temp 98.7; Pulse Ox 100% on 2 lpm NC; ea 12/26 19:43 Body Mass Index 19.97 (54.43 kg, 165.10 cm) aj1 Procedures: 06:43 Central Line: the site was prepped with Betadine, in sterile fashion, a triple lumen tw4 catheter was inserted, in the right femoral vein, in 1 attempts. placement was verified, by blood return, the site was dressed with using sterile technique, the patient tolerated the procedure, well. MDM: 12/26 19:47 Patient medically screened. tw4 12/27 02:04 Differential diagnosis: Nonspecific abd pain, gastritis. Data reviewed: vital signs, tw4 nurses notes. Data reviewed: nurses notes, lab test result(s), amylase and lipase, CBC, white blood cell count, hemoglobin, hematocrit, platelets, electrolytes, sodium, potassium, chloride, serum bicarbonate, BUN, creatinine, serum glucose, hepatic panel. Data interpreted: Pulse oximetry: Interpretation: normal. Test interpretation: by ED physician or midlevel provider: ECG. Counseling: I had a detailed discussion with the patient and/or guardian regarding: the historical points, exam findings, and any diagnostic results supporting the discharge/admit diagnosis, lab results, radiology results. Physician consultation: Joss Marcos MD was called at 00:37, and will see patient in ED, in inpatient room. 06:45 Other consultation: Surgery Dr Palacios 0037 will see pt in AM. tw4 12/26 19:48 Order name: Basic Metabolic Panel; Complete Time: 20:54 tw4 12/26 20:54 Interpretation: Normal except: GLUC 129; BUN 28; CRE 1.54; GFR 32. tw4 12/26 19:48 Order name: CBC with Diff; Complete Time: 00:38 tw4 12/26 20:47 Interpretation: Normal except: WBC 15.7; PLT 89; LYM% 1.8; BRIAN% 94.0; NEUT A 14.7. tw4 12/26 19:48 Order name: Creatinine for Radiology; Complete Time: 20:47 tw4 12/26 20:47 Interpretation: Normal except: CRE 1.57; GFR 31. tw4 12/26 19:48 Order name: Hepatic Function; Complete Time: 20:54 tw4 12/26 20:54 Interpretation: AST 383; ALT 251. tw4 12/26 19:48 Order name: Lipase; Complete Time: 20:54 tw4 12/26 20:54 Interpretation: Normal except: LIP 59. tw4 12/26 20:40 Order name: Manual Differential; Complete Time: 00:38 EDMS 12/26 21:45 Order name: Abdomen Exam Limited EDMS 12/26 22:45 Order name: CT Abd/Pelvis - IV Contrast Only tw4 12/27 01:25 Order name: Comprehensive Metabolic Panel EDMS 12/27 01:25 Order name: Comprehensive Metabolic Panel EDMS 12/27 01:25 Order name: Blood Culture EDMS 12/27 04:05 Order name: Lactate tw4 12/27 05:05 Order name: Lactate EDMS 12/26 19:48 Order name: IV Saline Lock; Complete Time: 20:07 tw4 12/26 19:48 Order name: Labs collected and sent; Complete Time: 20:07 tw4 12/26 20:47 Interpretation: Abnormal. tw4 12/27 01:26 Order name: NPO EDMS 12/27 01:26 Order name: EKG Electrocardiogram EDMS EC:47 Rate is 131 beats/min. Rhythm is regular, Sinus tachycardia. QRS [place] is Normal. ND tw4 interval is normal. QRS interval is normal. QT interval is normal. T waves are Normal. T waves are Flattened in lead aVF. No ST changes noted. Clinical impression: Abnormal EKG without significant change. Interpreted by me. Reviewed by me. Administered Medications: 12/26 20:07 Drug: NS 0.9% 1000 ml Route: IV; Rate: 125 ml/hr; Site: right antecubital; ea 22:58 Drug: Tylenol 1000 mg Route: PO; ea 23:44 Follow up: Response: Temperature is decreased ea 22:58 Drug: Ibuprofen 600 mg Route: PO; ea 23:45 Follow up: Response: Temperature is decreased ea 22:58 Drug: Zosyn 3.375 grams Route: IVPB; Infused Over: 60 mins; Site: right antecubital; ea 12/27 00:00 Follow up: Response: No adverse reaction; IV Status: Completed infusion; IV Intake: ea 100ml 06:14 Drug: vancoMYCIN 1.5 grams Route: IVPB; Rate: calculated rate; Site: right femoral; ea Disposition: 12/27/18 00:46 Hospitalization ordered by Joss Marcos for Inpatient Admission. Preliminary diagnosis are Cholecystitis, Sepsis, unspecified organism. - Bed requested for Intensive Care Unit. - Status is Inpatient Admission. ea - Condition is Fair. - Problem is new. - Symptoms have improved. UTI on Admission? No Critical care time excluding procedures: 06:43 Critical care time: Bedside Care: 20 minutes, Consultation: 10 minutes, Family tw4 Intervention: 10 minutes. Total time: 40 minutes Signatures: Dispatcher [employer] EDWY Matilda Hensley RN RN aj1 Christine Monk RN RN cg Antunez, Elena, RN RN ea Wadley, Terrence, MD MD tw4 Corrections: (The following items were deleted from the chart) 12/26 21:46 20:55 Abdomen Limited+[id number].[id number] ordered. [facility] 12/27 00:54 00:46 Hospitalization Ordered by Joss Marcos MD for Inpatient Admission. Preliminary cg diagnosis is Cholecystitis. Bed requested for Telemetry/MedSurg (Inpatient). Status is Inpatient Admission. Condition is Fair. Problem is new. Symptoms have improved. UTI on Admission? No. tw4 05:12 00:54 12/27/2018 00:46 Hospitalization Ordered by Joss Marcos MD for Inpatient cg Admission. Preliminary diagnosis is Cholecystitis. Bed requested for [facility] ER HOLD. Status is Inpatient Admission. Condition is Fair. Problem is new. Symptoms have improved. UTI on Admission? No. cg 05:20 05:12 12/27/2018 00:46 Hospitalization Ordered by Joss Marcos MD for Inpatient cg Admission. Preliminary diagnosis is Cholecystitis. Bed requested for Telemetry/MedSurg (Inpatient). Status is Inpatient Admission. Condition is Fair. Problem is new. Symptoms have improved. UTI on Admission? No. cg 05:20 05:20 12/27/2018 00:46 Hospitalization Ordered by Joss Marcos MD for Inpatient cg Admission. Preliminary diagnosis is Cholecystitis. Bed requested for Intensive Care Unit. Status is Inpatient Admission. Condition is Fair. Problem is new. Symptoms have improved. UTI on Admission? No. cg 06:45 05:20 12/27/2018 00:46 Hospitalization Ordered by Joss Marcos MD for Inpatient tw4 Admission. Preliminary diagnosis is Cholecystitis. Bed requested for Intensive Care Unit. Status is Inpatient Admission. Condition is Fair. Problem is new. Symptoms have improved. UTI on Admission? No. cg 06:51 06:45 12/27/2018 00:46 Hospitalization Ordered by Joss Marcos MD for Inpatient ea Admission. Preliminary diagnosis is Cholecystitis; Sepsis, unspecified organism. Bed requested for Intensive Care Unit. Status is Inpatient Admission. Condition is Fair. Problem is new. Symptoms have improved. UTI on Admission? No. tw4
--- NOTE | 2018-12-27 00:47 | ER ---
Nurse's Notes [facility] Name: Katherin Arcos Age: 88 yrs Sex: Female : 1930 Arrival Date: 12/26/2018 Time: 19:18 Bed 18 Private MD: Diagnosis: Cholecystitis;Sepsis, unspecified organism Presentation: 12/26 19:40 Presenting complaint: Patient states: Yesterday she started having abdominal pain, aj1 chills, vomiting and diarrhea. Today she felt the same. Denies fever. Transition of care: patient was not received from another setting of care. Onset of symptoms was December 25, 2018. Risk Assessment: Do you want to hurt yourself or someone else? Patient reports no desire to harm self or others. Initial Sepsis Screen: Does the patient meet any 2 criteria? HR > 90 bpm. No. Patient's initial sepsis screen is negative. Does the patient have a suspected source of infection? Yes: Acute abdominal pain. Care prior to arrival: None. 19:40 Method Of Arrival: Ambulatory aj1 19:40 Acuity: ABEL 3 aj1 Triage Assessment: 19:43 General: Appears in no apparent distress. comfortable, Behavior is calm, cooperative, aj1 appropriate for age. Pain: Complains of pain in abdomen Pain currently is 5 out of 10 on a pain scale. Neuro: Level of Consciousness is awake, alert, obeys commands, Oriented to person, place, time, situation. Cardiovascular: Patient's skin is warm and dry. Respiratory: Airway is patent Respiratory effort is even, unlabored, Respiratory pattern is regular, symmetrical. GI: Reports nausea, vomiting. Historical: - Allergies: 19:43 No Known Allergies; aj1 - Home Meds: 19:43 blood pressure medicine [Active]; aj1 - PMHx: 19:43 Hypertension; aj1 - Immunization history:: Flu vaccine is not up to date. - Social history:: Smoking status: Patient/guardian denies using tobacco. - Ebola Screening: : Patient denies travel to an Ebola-affected area in the 21 days before illness onset. Screenin:07 Abuse screen: Denies threats or abuse. Nutritional screening: No deficits noted. ea Tuberculosis screening: No symptoms or risk factors identified. Fall Risk IV access (20 points). Assessment: 20:00 General: Appears uncomfortable, Behavior is calm, cooperative, appropriate for age. ea Pain: Complains of pain in abdomen. Neuro: Level of Consciousness is awake, alert, obeys commands, Oriented to person, place, time. Cardiovascular: Patient's skin is warm and dry. Respiratory: Airway is patent Respiratory effort is even, unlabored, Respiratory pattern is regular, symmetrical. GI: Reports nausea. GI: Abdomen is non-distended, Bowel sounds present X 4 quads. Derm: Skin is pink, warm \T\ dry. 21:24 Reassessment: Patient and/or family updated on plan of care and expected duration. Pain ea level reassessed. Patient is alert, oriented x 3, equal unlabored respirations, skin warm/dry/pink. 22:55 Reassessment: Patient and/or family updated on plan of care and expected duration. Pain ea level reassessed. Pt shaking, warm to touch, temperature 103.7, provider notified, antipyretics ordered. Pt tolerated well. 23:15 Reassessment: Patient and/or family updated on plan of care and expected duration. Pain ea level reassessed. Patient is alert, oriented x 3, equal unlabored respirations, skin warm/dry/pink. Pt taken to CT. 23:40 Reassessment: Patient and/or family updated on plan of care and expected duration. Pain ea level reassessed. Patient is alert, oriented x 3, equal unlabored respirations, skin warm/dry/pink. Patient states feeling better. Patient states symptoms have improved. 12/27 00:00 Reassessment: Patient and/or family updated on plan of care and expected duration. Pain ea level reassessed. Patient is alert, oriented x 3, equal unlabored respirations, skin warm/dry/pink. 01:50 Reassessment: Patient and/or family updated on plan of care and expected duration. Pain ea level reassessed. Pt resting with eyes closed, respirations even and unlabored. Chest expansions even and symmetrical. 03:00 Reassessment: Patient and/or family updated on plan of care and expected duration. Pain ea level reassessed. Patient is alert, oriented x 3, equal unlabored respirations, skin warm/dry/pink. Son reports he was going home Ko (SON) [phone] Padmini (daughter in law) [phone]. 04:00 Reassessment: Patient and/or family updated on plan of care and expected duration. Pain ea level reassessed. Pt resting with eyes closed, respirations even and unlabored. Chest expansions even and symmetrical. 04:52 Reassessment: Patient and/or family updated on plan of care and expected duration. Pain ea level reassessed. Patient is alert, oriented x 3, equal unlabored respirations, skin warm/dry/pink. Dr. Marcos notified of blood pressure 81/41, verbal order obtained for Levophed. 05:35 Reassessment: Provider at bedside inserting a central line, pt tolerating well. ea 05:50 Reassessment: Report given to Alondra PAUL in ICU. ea 06:18 Reassessment: Patient and/or family updated on plan of care and expected duration. Pain ea level reassessed. Patient is alert, oriented x 3, equal unlabored respirations, skin warm/dry/pink. Pt taken to ICU via bed per ED nurse and tattoo technician, pt tolerating well. IV's patent, with medications infusing. Vital Signs: 12/26 19:43 BP 127 / 66; Pulse 91; Resp 18; Temp 99.3; Pulse Ox 95% on R/A; Weight 54.43 kg (R); aj1 Height 5 ft. 5 in. (165.10 cm) (R); Pain 5/10; 20:20 BP 113 / 59; Pulse 92; Resp 18; Pulse Ox 98% ; mt 21:15 BP 113 / 56; Pulse 86; Resp 18; Temp 98.5(O); Pulse Ox 98% on R/A; ea 22:25 BP 148 / 93; Pulse 78; Resp 16; Pulse Ox 99% on R/A; mt 22:50 BP 133 / 105; Pulse 120; Resp 22; Temp 103.7; Pulse Ox 95% ; ea 23:00 BP 104 / 51; Pulse 111; Resp 19; Pulse Ox 100% ; ea 23:41 BP 100 / 50; Pulse 101; Resp 19; Temp 101.6; Pulse Ox 100% ; ea 12/27 00:40 BP 102 / 88; Pulse 80; Resp 18; Temp 99.7; Pulse Ox 98% ; ea 01:50 BP 96 / 41; Pulse 98; Resp 18; Pulse Ox 99% on R/A; ea 03:00 BP 92 / 50; Pulse 100; Resp 18; Pulse Ox 100% ; ea 04:51 BP 81 / 41; Pulse 96; Resp 18; Pulse Ox 98% on R/A; ea 05:30 BP 99 / 56; Pulse 113; Resp 18; Temp 98.5; Pulse Ox 100% ; ea 06:15 BP 99 / 56; Pulse 110; Resp 18; Temp 98.7; Pulse Ox 100% on 2 lpm NC; ea 12/26 19:43 Body Mass Index 19.97 (54.43 kg, 165.10 cm) aj1 ED Course: 12/26 19:18 Patient arrived in ED. ds1 19:43 Triage completed. aj1 19:43 Arm band placed on Patient placed in an exam room. aj1 19:47 Mando Mcleod MD is Attending Physician. tw4 19:48 Minnie Timmons, HUMBERTO is Primary Nurse. ea 20:00 Inserted saline lock: 20 gauge in right antecubital area, using aseptic technique. ea Blood collected. 20:07 Patient has correct armband on for positive identification. Bed in low position. Call ea light in reach. Side rails up X2. 20:29 Pulled IV back to fix flow of IV fluids. mt 21:46 Notified ED physician of a critical lab result(s). Band count of 27%. jb4 22:24 Abdomen Exam Limited In Process Unspecified. EDMS 23:31 CT Abd/Pelvis - IV Contrast Only In Process Unspecified. EDMS 12/27 00:45 Joss Marcos MD is Hospitalizing Provider. tw4 01:00 No provider procedures requiring assistance completed. Patient admitted, IV remains in ea place. 05:35 Assisted provider with central line placement. Set up central line tray. Triple lumen ea line placed in right femoral. Line placed by Mando Mcleod MD Placement verified by blood return, Dressed with Tegaderm, Patient tolerated well. Administered Medications: 12/26 20:07 Drug: NS 0.9% 1000 ml Route: IV; Rate: 125 ml/hr; Site: right antecubital; ea 22:58 Drug: Tylenol 1000 mg Route: PO; ea 23:44 Follow up: Response: Temperature is decreased ea 22:58 Drug: Ibuprofen 600 mg Route: PO; ea 23:45 Follow up: Response: Temperature is decreased ea 22:58 Drug: Zosyn 3.375 grams Route: IVPB; Infused Over: 60 mins; Site: right antecubital; ea 12/27 00:00 Follow up: Response: No adverse reaction; IV Status: Completed infusion; IV Intake: ea 100ml 06:14 Drug: vancoMYCIN 1.5 grams Route: IVPB; Rate: calculated rate; Site: right femoral; ea Intake: 00:00 IV: 100ml; Total: 100ml. ea 06:00 IV: 2000ml (IV Fluid); Total: 2100ml. ea Outcome: 00:46 Decision to Hospitalize by Provider. tw4 01:00 Admitted to ER Hold. Please see [facility] for further documentation. ea 01:00 Condition: stable 01:00 Instructed on the need for admit. 06:51 Patient left the ED. ea Signatures: Dispatcher [employer] EDMatilda Amezquita RN RN [email or web address] Brenda Rush ds1 Daljit Julian RN RN jb4 Thompson, Moriah mt Antunez, Elena, RN RN ea Wadley, Terrence, MD MD tw4 Corrections: (The following items were deleted from the chart) 12/26 23:14 22:55 Reassessment: Patient and/or family updated on plan of care and expected ea duration. Pain level reassessed. Patient is alert, oriented x 3, equal unlabored respirations, skin warm/dry/pink. Pt taken to CT ea
--- NOTE | 2018-12-27 01:06 | P.HP ---
Certification for Inpatient Patient admitted to: Inpatient With expected LOS: >2 Midnights Patient will require the following post-hospital care: None Practitioner: I am a practitioner with admitting privileges, knowledge of patient current condition, hospital course, and medical plan of care. Services: Services provided to patient in accordance with Admission requirements found in Title 42 Section 412.3 of the Code of Federal Regulations Patient History Date of Service: 12/27/18 Reason for admission: Abdominal pain, nausea vomiting diarrhea History of Present Illness: 88-year-old female with no significant past medical history other than hypertension , history of kidney stones in the past brought to ER with abdominal pain associated with nausea vomiting and diarrhea and subjective fever and started this afternoon. Insidious in onset. Patient stasis she has diffuse abdominal pain cramping type, right now 2/10 in severity. Associated with nausea and 1 episode of vomiting. Denies any hematemesis. Or melena. She also had subjective fever without chills. Pain radiating to the back. A the time of interview the patient is more comfortable pain is controlled well Workup in the ER was consistent with acute cholecystitis and was admitted for further management Allergies No Known Allergies Allergy (Verified 10/22/17 20:53) Home medications list reviewed: Yes Home Medications: Cyanocobalamin [Vitamin B-12*] 1,000 mcg PO DAILY #30 tab 11/03/17 Docusate [Colace Cap*] 100 mg PO DAILY PRN #15 cap 11/03/17 Ferrous Sulfate [Ferrous Sulfate*] 325 mg PO BID #60 tab 11/03/17 Metoprolol Tartrate [Lopressor*] 25 mg PO BID 6AM 6PM #60 tab 11/03/17 Rivaroxaban [Xarelto*] 10 mg PO DAILY #15 tablet 11/03/17 Tramadol HCl [Ultram] 50 mg PO TID PRN #30 tablet 11/03/17 - Past Medical/Surgical History Diabetic: No -: Hypertension -: AGUSTO BREAST BENIGN LUMPECTOMY -: TONSILLECTOMY -: HYSTERECTOMY -: Hip fracture - Family History Family History: Reviewed- Non-Contributory - Social History Smoking Status: Never smoker Alcohol use: No CD- Drugs: No Caffeine use: Yes Review of Systems 10-point ROS is otherwise unremarkable General: Fever, Weakness Gastrointestinal: Nausea, Vomiting, Abdominal Pain, Diarrhea Physical Examination - Vital Signs Temperature: 99.4 F Blood Pressure: 108/62 Pulse: 78 - Physical Exam General: Alert, Oriented x3, Mild distress HEENT: Atraumatic, Normocephalic Neck: Supple, JVD not distended Respiratory: Clear to auscultation bilaterally, Normal air movement Cardiovascular: No edema, Regular rate/rhythm, Normal S1 S2 Capillary refill: <2 Seconds Gastrointestinal: Soft and benign, Non-distended, Tenderness Musculoskeletal: No clubbing, No tenderness Integumentary: No rashes, No breakdown Neurological: Normal speech, Normal strength at 5/5 x4 extr, Sensation intact Lymphatics: No axilla or inguinal lymphadenopathy Urinary: Other (No bladder distention) External genitalia: Deferred Rectal: Deferred - Studies Laboratory Data (last 24 hrs) 12/26/18 20:00: Creatinine 1.57 H 12/26/18 20:00: WBC 15.7 H, Hgb 12.5, Hct 38.0, Plt Count 89 L 12/26/18 20:00: Sodium 140, Potassium 3.8, BUN 28 H, Creatinine 1.54 H, Glucose 129 H, Total Bilirubin 0.6, AST 383 H*, ALT 251 H, Alkaline Phosphatase 85, Lipase 59 L Assessment and Plan - Problems (Diagnosis) (1) Acute cholecystitis Current Visit: Yes Status: Acute Plan: Start on Zosyn pain control Surgical consult Monitor her LFTs Probably may benefit from cholecystectomy Awaiting further recommendations from surgery keep NPO for now (2) Leucocytosis Current Visit: Yes Status: Acute Plan: Probably due to cholecystitis start on antibiotics Will get cultures Change antibiotic as per the sensitivity Get a lactic acid Monitor CBC daily (3) Elevated LFTs Current Visit: Yes Status: Acute Plan: Monitor LFTs serially CT abdomen pelvis final report pending No signs of any pancreatitis ,lipase was normal Waiting final CT abdomen report regarding size of CBD (4) Acute kidney injury Current Visit: Yes Status: Acute Plan: Elevated renal parameters probably due to dehydration Will start on IV fluids Antinausea medications (5) Hypertension Current Visit: No Status: Chronic Plan: Right now normotensive Will monitor closely blood pressure Titrate antihypertensive as needed Qualifiers: Hypertension type: essential hypertension Qualified Code(s): I10 - Essential (primary) hypertension Discharge Plan: Home Plan to discharge in: 48 Hours - Advance Directives Does patient have a Living Will: Yes Does patient have a Durable POA for Healthcare: Yes - Code Status/Comfort Care Code Status: Full Code
[2018-12-27] MEDS ORDERED: ACETAMINOPHEN 500 MG TAB PO PRN (01:19)
[2018-12-27] MEDS ORDERED: MORPHINE 2 MG/ML SYR IV PRN (01:25)
[2018-12-27] MEDS ORDERED: SODIUM CHLORIDE 0.9% 10ML INJ IV PRN (01:25)
[2018-12-27] MEDS: NA CHLORIDE 0.9% 1,000 ML IV SCH ×2 (02:00→17:56)
[2018-12-27] MEDS ORDERED: NA CHLORIDE 0.9% 1,000 ML ONE ×2 (02:47→04:44)
[2018-12-27] MEDS ORDERED: NOREPINEPHRINE 4mg/D5W 250mL 4 MG/250 ML BAG IV ONE (04:58)
[2018-12-27] MEDS ORDERED: ALBUMIN HUMAN 25% 100 ML IV ONE ×2 (04:58→07:00)
--- NOTE | 2018-12-27 05:39 | P.PN ---
Date of Service: 12/27/18 Patients BP dropped to 65/41 Gave 2 L NS bolus Started on NS continuous Started on levophed to titrate to a MAP >65 Added on Vancomycin ER was consulted for central line placement Will transfer to ICU will get serial lactic acids Sepsis reassessment Vitals : BP 99 /48, afebrile , pulse rate is 122, saturating 100% with 2 L nasal cannula Patient alert oriented S1-S2 normal tachycardic CTA bilateral no wheezes no crepitations Abdomen soft nontender [employer]MENT [employer]ER alert awake nonfocal Periphery :no edema Cap refill less than or equal to 2 seconds
[2018-12-27] MEDS ORDERED: NA CHLORIDE 0.9% 500 ML ONE (05:55)
[2018-12-27] MEDS ORDERED: VANCOMYCIN 1 GM/VIAL ONE (05:55)
[2018-12-27] MEDS ORDERED: VASOPRESSIN 80 UNIT in NA CHLORIDE 0.9% 250 ML IV PRN (07:00)
[2018-12-27] MEDS: PIPER/TAZO/NS 3.375gm 3.375 GM/100 ML BAG IVPB SCH ×2 (08:28→17:56)
[2018-12-27] MEDS: PANTOPRAZOLE 40 MG INJ IVP SCH (08:28)
[2018-12-27] MEDS: NOREPINEPHRINE 4 MG in D5W 250 ML IV PRN ×2 (08:28→10:30)
[2018-12-27 08:46] LABS: Urine Appearance CLOUDY; Urine Bilirubin NEGATIVE (NEG); Urine Blood 2+ (NEG); Urine Color YELLOW; Urine Glucose NEGATIVE (NEG); Urine Protein 1+ (NEG); Urine Specific Gravity >=1.030 (1.005-1.030); Urine Urobilinogen 0.2 mg/dL (0.2-1.0)
--- NOTE | 2018-12-27 08:52 | RAD REPORT ---
EXAM DESCRIPTION: RAD - Chest Single View - 12/27/2018 7:46 am CLINICAL HISTORY: Sepsis COMPARISON: October 2017 TECHNIQUE: AP portable chest image was obtained 0722 hours . FINDINGS: Lung volumes are low. This accentuates interstitial pattern. Adjusting for the inspiration differences, lung markings are not substantially different. Mild interstitial edema or infiltrate co uld be masked. No focal consolidations seen. Heart size normal. Large mediastinal calcification on the right has not changed. No measurable pleur al effusion and no pneumothorax. No acute bony abnormality seen. No acute aortic findings suspected. IMPRESSION: No focal consolidation or mass. Interstitial pattern is accentuated by shallow inspiration potentially masking mild edema or infiltra te.
[2018-12-27 09:11] LABS: Urine Bacteria 20-50 /HPF (<20); Urine Microscopic Reflex ORDER UMIC
[2018-12-27 09:12] LABS: Urine Amorphous Sediment 1+ /HPF (NONE SEEN); Urine Culture Reflex Order REFLEXED
--- NOTE | 2018-12-27 09:53 | RAD REPORT ---
EXAM DESCRIPTION: US - Abdomen Exam Limited - 12/27/2018 12:49 am CLINICAL HISTORY: PAIN COMPARISON: No comparisons FINDINGS: At least 2 large gallstones are present up to 16 mm in size. Additional smaller gallstones could be obscured. Gallbladder is contracted. Contraction accentuates wall thickness. No pericholecy stic fluid. No common duct stone or biliary tree dilatation identified. Preliminary findings provided at the time of the study. IMPRESSION: Multiple gallstones are present in a contracted gallbladder. Contraction limits gallblad gary wall assessment. No duct stone or biliary tree dilatation.
[2018-12-27] MEDS ORDERED: NA CHLORIDE 0.9% 1,000 ML IV ONE (10:15)
[2018-12-27] MEDS: ONDANSETRON 4 MG/2 ML VIAL IV PRN (10:42)
--- NOTE | 2018-12-27 11:31 | P.PN ---
Date of Service: 12/27/18 Patient seen and examined at bedside. Clinically, doing well. Blood pressure continues to be a low, map below 65. Currently maxed out on Levophed. Will go ahead and start vasopressin at this time. Patient receive another 1 L bolus as well Code status discussed with patient. Patient is alert oriented x3. She requests to be a DNR Also discussed with medical [id number], son, Ko Arcos. He agrees for patient to be DNR as well. DNR order placed.
[2018-12-27] MEDS: NOREPINEPHRINE 8 MG in Dextrose 5%-Water 500 ML IV PRN ×3 (12:50→22:32)
[2018-12-27] MEDS ORDERED: INFLUENZA VACCINE (for 3y+) 0.5 ML DOSE IMVAC ONE (13:00)
[2018-12-27 14:32] LABS: Blood O2 Saturation 94.1 % (92-98.5)
[2018-12-27 14:33] LABS: Blood Gas Oxyhemoglobin 92.8 % (94-97)
[2018-12-28] MEDS: PIPER/TAZO/NS 3.375gm 3.375 GM/100 ML BAG IVPB SCH ×3 (00:25→17:31)
[2018-12-28] MEDS: ONDANSETRON 4 MG/2 ML VIAL IV PRN (00:30)
[2018-12-28 05:22] LABS: Protime INR 1.74
[2018-12-28 05:47] LABS: Albumin 2.5 g/dL (3.4-5.0); Bilirubin Total 1.2 mg/dL (0.2-1.0); Phosphorus 4.6 mg/dL (2.5-4.9); Potassium 4.6 mmol/L (3.5-5.1)
[2018-12-28] MEDS ORDERED: D50W 25 GM/50 ML SYRINGE IV ONE ×2 (05:51→06:35)
[2018-12-28] MEDS ORDERED: Magnesium Sulfate 2gm IVPB 2 G/50 ML BAG IV ONE (05:52)
[2018-12-28 06:02] LABS: Absolute Lymphocytes (CBC) 0.3 K/uL (0.7-4.9); Basophils % 0.1 % (0-1.3); Hematocrit 29.9 % (36.0-45.0); Lymphocytes % 1.8 % (15.3-44.8); MPV 10.8 fL (7.6-11.3)
[2018-12-28] MEDS: NA CHLORIDE 0.9% 1,000 ML IV SCH ×3 (06:03→23:12)
[2018-12-28 06:54] LABS: Anisocytosis 1+; Blood Morphology Comment NOTED (NOT SEEN); Macrocytosis 1+; Platelet Estimate DECR
[2018-12-28] MEDS: NOREPINEPHRINE 8 MG in Dextrose 5%-Water 500 ML IV PRN ×2 (07:34→19:22)
[2018-12-28] MEDS: PANTOPRAZOLE 40 MG INJ IVP SCH (08:57)
[2018-12-28] MEDS ORDERED: VANCOMYCIN/NS 1 gm 1 GM/250 ML BAG IVPB SCH (09:00)
--- NOTE | 2018-12-28 09:53 | EKG ---
Test Date: 2018-12-26 Test Time: 22:42:13 Rn Clinical: ESE MEASUREMENT RESULTS: Intervals: Rate: 131 AL: 136 QRSD: 72 QT: 288 QTc: 425 [place]: P: 48 AL: 136 QRS: 35 T: 59 INTERPRETIVE STATEMENTS: Sinus tachycardia Cannot rule out Inferior infarct, age undetermined Abnormal ECG Compared to ECG 10/22/2017 15:21:38 Sinus rhythm no longer present Atrial premature complex(es) no longer present Myocardial infarct finding still present Electronically Signed On 12-28-18 09:52:31 CDT by Perry Patel
--- NOTE | 2018-12-28 11:44 | RAD REPORT ---
EXAM DESCRIPTION: CT - Abdomen Pelvis W Contrast - 12/27/2018 12:50 am CLINICAL HISTORY: Abdominal pain COMPARISON: none. TECHNIQUE: Due to technical issues at hospital this exam could not be dictated after completion. It is now available for dictation Computed axial tomography of the abdomen pelvis was obtained. 100 cc Isovue-300 was administered intr avenously. Oral contrast was not requested which limits evaluation of bowel. All CT scans are performed using dose optimization technique as appropriate and may include automated exposure control or mA/KV adjustment according to patient size. FINDINGS: Moderate right hydronephrosis with diminished concentration of contrast. 5 millimeter calc ulus within the right renal pelvis. The right ureter is dilated. 2 millimeter calculus right ureteral vesicle junction. Left kidney contains parapelvic and cortical cysts Multiple gallstones with thickened wall Hepatic and splenic granulomata 14 millimeter cystic structure pancreatic body may be an IMPT No adrenal mass Diverticulosis without diverticulitis Small amount of ascites Borderline small bowel dilatation likely mild ileus 4.5 centimeter mass abuts the lesser curvature of the stomach IMPRESSION: 2 millimeter calculus right UVJ with moderate right hydronephrosis Cholelithiasis. Thickened gallbladder wall suspicious for cholecystitis 4.5 centimeter mass abuts the lesser curvature of the stomach suspicious for neoplasm
[2018-12-28] MEDS ORDERED: NA CHLORIDE 0.9% 500 ML IV ONE (14:10)
[2018-12-28] MEDS ORDERED: LOPERAMIDE HCL 2 MG CAPSULE PO PRN (14:12)
--- NOTE | 2018-12-28 17:14 | P.PN ---
Subjective Date of Service: 12/28/18 Chief Complaint: Abdominal pain, nausea vomiting diarrhea Patient seen and examined at bedside. No family at bedside. Chart reviewed and case discussed with nursing staff. Weaned off of vasopressin Review of Systems 10-point ROS is otherwise unremarkable Physical Examination - Vital Signs Temperature: 98.7 F Blood Pressure: 103/76 Pulse: 104 Respirations: 27 Pulse Ox (%): 99 - Physical Exam General: Alert, In no apparent distress, Confused (Intermittently) HEENT: Atraumatic, PERRLA, EOMI Neck: Supple, JVD not distended Respiratory: Clear to auscultation bilaterally, Normal air movement Cardiovascular: Regular rate/rhythm, Normal S1 S2 Gastrointestinal: Normal bowel sounds, No tenderness Musculoskeletal: No tenderness Integumentary: No rashes Neurological: Normal speech, Normal tone, Normal affect Lymphatics: No axilla or inguinal lymphadenopathy Assessment And Plan - Plan Hypotensive shock Provide another 500 mL bolus today Currently on Levophed. Continue to wean as tolerated. Vasopressin weaned off. Acute cholecystitis Continue IV antibiotics pain control Surgical consult once more hemodynamically stable Monitor her LFTs Probably may benefit from cholecystectomy Keep NPO for now Leucocytosis Probably due to cholecystitis Continue on antibiotics Cultures, pending Change antibiotic as per the sensitivity Monitor CBC daily Elevated LFTs Monitor LFTs serially No signs of any pancreatitis ,lipase was normal Acute kidney injury Elevated renal parameters probably due to dehydration Will continue on IV fluids Antinausea medications Hypertension Hold her blood pressure medications at this time DVT prophylaxis: Lovenox GI prophylaxis: None Diet: NPO Disposition: Continue to monitor in ICU, pending improvement and would continue to wean off of pressors as tolerated - Code Status/Comfort Care Code Status: Do Not Attempt Resuscitat
--- NOTE | 2018-12-28 17:19 | EKG ---
Test Date: 2018-12-27 Test Time: 08:15:58 Marketing Team Lead: HERMILO, MEASUREMENT RESULTS: Intervals: Rate: 116 OH: 170 QRSD: 86 QT: 332 QTc: 461 [place]: P: 36 OH: 170 QRS: 44 T: 77 INTERPRETIVE STATEMENTS: Sinus tachycardia with occasional premature ventricular complexes Otherwise normal ECG Compared to ECG 12/26/2018 22:42:13 Ventricular premature complex(es) now present Myocardial infarct finding no longer present Electronically Signed On 12-28-18 17:18:38 CDT by Perry Patel
[2018-12-28 21:55] VITALS: O2SAT 100
[2018-12-29] MEDS: PIPER/TAZO/NS 3.375gm 3.375 GM/100 ML BAG IVPB SCH ×2 (00:23→08:41)
[2018-12-29] MEDS ORDERED: METOPROLOL TARTRATE 5 MG/5 ML INJ IV STA (05:07)
[2018-12-29 05:42] VITALS: BMI 23.0
[2018-12-29 05:48] LABS: Albumin 2.2 g/dL (3.4-5.0); Bilirubin Total 1.4 mg/dL (0.2-1.0); Magnesium 1.8 mg/dL (1.8-2.4); Potassium 4.7 mmol/L (3.5-5.1); Protein, Total 4.8 g/dL (6.4-8.2)
[2018-12-29] MEDS ORDERED: D50W 25 GM/50 ML SYRINGE IV PRN (05:59)
--- NOTE | 2018-12-29 06:11 | EKG ---
Test Date: 2018-12-29 Test Time: 04:54:33 Brilliandeer Lopper: RT MEASUREMENT RESULTS: Intervals: Rate: 127 ME: QRSD: 74 QT: 310 QTc: 450 [place]: P: ME: QRS: 17 T: -1 INTERPRETIVE STATEMENTS: Atrial fibrillation with rapid ventricular response Low voltage QRS Nonspecific T wave abnormality, probably digitalis effect Abnormal ECG Compared to ECG 12/27/2018 08:15:58 Low QRS voltage now present T-wave abnormality now present Sinus tachycardia no longer present Ventricular premature complex(es) no longer present Electronically Signed On 12-29-18 06:10:44 CDT by Perry Patel
[2018-12-29] MEDS: PANTOPRAZOLE 40 MG INJ IVP SCH (08:41)
--- NOTE | 2018-12-29 13:20 | P.PN ---
Subjective Date of Service: 12/29/18 Chief Complaint: Abdominal pain, nausea vomiting diarrhea Subjective: Worsening Patient seen and examined at bedside. Daughter in-law at bedside. Chart reviewed and case discussed with nursing staff. Review of Systems 10-point ROS is otherwise unremarkable Physical Examination - Vital Signs Temperature: 985 F Blood Pressure: 112/55 Pulse: 99 Respirations: 23 Pulse Ox (%): 100 - Physical Exam General: Mild distress, Confused, Other (Sleepy/drowsy) Respiratory: Dull, Crackles/rales Cardiovascular: Irregular heart rate/rhythm (Atrial fibrillation) Gastrointestinal: Tenderness - Studies Microbiology Data (last 24 hrs): 12/27/18 02:30 Blood - Blood Aerobic Blood Culture - Final Escherichia Coli 12/27/18 02:30 Blood - Blood Gram Stain - Final 12/27/18 02:30 Blood - Blood Anaerobic Blood Culture - Final Escherichia Coli 12/27/18 02:30 Blood - Blood Gram Stain - Final Assessment And Plan - Plan Hypotensive shock Provide another 500 mL bolus today Currently on Levophed. Continue to wean as tolerated. Vasopressin weaned off. Acute cholecystitis Continue IV antibiotics pain control Surgical consult once more hemodynamically stable Monitor her LFTs Probably may benefit from cholecystectomy Keep NPO for now Leucocytosis Probably due to cholecystitis Continue on antibiotics Cultures, pending Change antibiotic as per the sensitivity Monitor CBC daily Elevated LFTs Monitor LFTs serially No signs of any pancreatitis ,lipase was normal Acute kidney injury Elevated renal parameters probably due to dehydration Will continue on IV fluids Antinausea medications Hypertension Hold her blood pressure medications at this time DVT prophylaxis: Lovenox GI prophylaxis: None Diet: NPO Disposition: Family would like to stop current treatment with Levophed and withdrawal of care. They would like patient to be comfortable and placed on hospice. Discussed with [id number] at bedside. This was also discussed with the son via telephone. Social work was consulted for hospice. Withdrawal of care paperwork was also signed. Patient currently pending hospice evaluation. Will discontinue medications and place patient on hospice. Will transfer out of the ICU on the floor once patient and family decided on hospice.
[2018-12-29 16:15] VITALS: BP 93/50
[2018-12-29 17:18] VITALS: TEMP 98.9
--- NOTE | 2018-12-29 18:44 | P.DS ---
Admission Date: 12/27/18 Discharge Date: 12/29/18 Disposition: HOSPICE-MEDICAL FACILITY Reason for Admission: Abdominal pain, nausea vomiting diarrhea Brief History of Present Illness: 88-year-old female with no significant past medical history other than hypertension , history of kidney stones in the past brought to ER with abdominal pain associated with nausea vomiting and diarrhea and subjective fever and started this afternoon. Insidious in onset. Patient stasis she has diffuse abdominal pain cramping type, right now 2/10 in severity. Associated with nausea and 1 episode of vomiting. Denies any hematemesis. Or melena. She also had subjective fever without chills. Pain radiating to the back. A the time of interview the patient is more comfortable pain is controlled well Workup in the ER was consistent with acute cholecystitis and was admitted for further management Hospital Course: Patient was admitted for acute cholecystitis, hypotensive shock. She was given multiple boluses of IV fluids. She was also on 2 pressors, she was weaned off of 1. But she continued to require Levophed to keep her blood pressure level. Clinically, patient seemed to be worsening. Medical [id number], her son on and family decided that they would like to the withdraw care and put patient on hospice with comfort care. Social work was consulted, withdrawal of care paperwork was slightly. Family chose [facility] hospice, and patient was then discharged from our service to be placed on inpatient hospice. Vital Signs/Physical Exam: Temp Pulse Resp BP Pulse Ox 98.9 F 91 H 20 93/50 L 100 12/29/18 16:00 12/29/18 17:00 12/29/18 17:00 12/29/18 16:00 12/29/18 17:00 General: Mild distress, Confused Neck: Supple, JVD not distended Respiratory: Clear to auscultation bilaterally, Normal air movement Cardiovascular: Normal S1 S2, Irregular heart rate/rhythm (A fib) Gastrointestinal: Normal bowel sounds, Tenderness Laboratory Data at Discharge: WBC 15.8 K/uL (4.3-10.9) H 12/28/18 05:40 Hgb 10.0 g/dL (12.0-15.0) L D 12/28/18 05:40 Hct 29.9 % (36.0-45.0) L D 12/28/18 05:40 Plt Count 33 K/uL (152-406) L* D 12/28/18 05:40 PT 20.1 SECONDS (9.5-12.5) H 12/28/18 04:45 INR 1.74 12/28/18 04:45 Sodium 136 mmol/L (136-145) 12/29/18 04:45 Potassium 4.7 mmol/L (3.5-5.1) 12/29/18 04:45 BUN 56 mg/dL (7-18) H 12/29/18 04:45 Creatinine 4.42 mg/dL (0.55-1.3) H D 12/29/18 04:45 Glucose 48 mg/dL (74-106) L* 12/29/18 04:45 Phosphorus 4.6 mg/dL (2.5-4.9) 12/28/18 04:45 Magnesium 1.8 mg/dL (1.8-2.4) D 12/29/18 04:45 Total Bilirubin 1.4 mg/dL (0.2-1.0) H 12/29/18 04:45 AST 128 U/L (15-37) H D 12/29/18 04:45 ALT 108 U/L (12-78) H 12/29/18 04:45 Alkaline Phosphatase 83 U/L (45-117) D 12/29/18 04:45 Lipase 59 U/L (73-393) L 12/26/18 20:00 Home Medications: Metoprolol Tartrate [Lopressor] 25 mg PO DAILY 12/27/18 Time spent managing pt's care (in minutes): 55
== END 2018-12-29 17:56 | disposition hospice, inpatient (51) | DRG 871 ==
LOC: ER 19:17 → ERHOLD 12-27 03:13 → 3RD-ICU 12-27 06:02 → 2ND 12-29 17:05
PROVIDERS: ADMIT Family Medicine; ATTEND Family Medicine
DX: A41.51 Sepsis due to Escherichia coli [E. coli] (principal); R65.21 Severe sepsis with septic shock; N17.9 Acute kidney failure, unspecified; K81.0 Acute cholecystitis; I10 Essential (primary) hypertension; Z87.442 Personal history of urinary calculi; Z66 Do not resuscitate
CPT/HCPCS: 36415; 71045; 74177; 76705; 80048; 80053; 80076; 80202; 81003; 81015; 82805; 82947; 82962; 83605; 83690; 83735; 84100; 85025; 85610; 87040; 87077; 87086; 87088; 87186; 87205; 87493; 93005; 94760; 96365; 96375; 99285; C9113; J2270; J2405; J2543; J3370; J3475; J7030; J7040; J7060; P9047; Q9967

== ENCOUNTER 2018-12-29 18:08 | Inpatient (IN) | payer OTHER ==
[2018-12-29] MEDS ORDERED: HYDROMORPHONE/PCA 10 MG/50 ML SYR IV PRN ×2 (18:20→20:17)
[2018-12-29] MEDS ORDERED: LORazepam 2 MG/ML VIAL IV PRN (18:34)
[2018-12-29] MEDS ORDERED: NA CHLORIDE 0.9% 1,000 ML IV SCH (19:00)
--- NOTE | 2018-12-29 20:02 | P.HP ---
Certification for Inpatient Patient admitted to: Inpatient With expected LOS: >2 Midnights Patient will require the following post-hospital care: Hospice Practitioner: I am a practitioner with admitting privileges, knowledge of patient current condition, hospital course, and medical plan of care. Services: Services provided to patient in accordance with Admission requirements found in Title 42 Section 412.3 of the Code of Federal Regulations Patient History Date of Service: 12/29/18 Reason for admission: HOSPICE FOR SEPTIC SHOCK History of Present Illness: MS. PARKS CAME TO ER WITH CHOLECYSTITIS, LOW PLATELETS AND RENAL FAILURE. SHE WAS ON IV MEDICATIONS TO IMPROVE BP, ANTIBIOTICS FAILED, SHE HAS GRADUALLY BECOME LETHARGIC AND FAMILY HAS ASKED FOR HOSPICE CARE. DR. KENNEDY CONSULTED [facility] TO TAKE CARE OVER THE CARE FOR HOSPICE. I CAME TO SEE THE PATIENT ON SCOND FLOOR MOVED FROM ICU. THERE IS NO ONE AT BEDSIDE. PATIENT IS OBTUNDED AND NOT ABLE TO TALK. Allergies No Known Allergies Allergy (Verified 12/27/18 08:55) Home Medications: Metoprolol Tartrate [Lopressor] 25 mg PO DAILY 12/27/18 - Past Medical/Surgical History Diabetic: No -: Hypertension -: kidney stone -: AGUSTO BREAST BENIGN LUMPECTOMY -: TONSILLECTOMY -: HYSTERECTOMY -: Hip fracture 03/2017 - Social History Alcohol use: No CD- Drugs: No Caffeine use: Yes Review of Systems is unable to be obtained Physical Examination - Physical Exam General: Moderate distress, Confused, Unresponsive HEENT: Atraumatic Neck: Supple Respiratory: Clear to auscultation bilaterally Cardiovascular: No edema, Normal S1 S2 Gastrointestinal: Non-distended, No guarding Assessment and Plan - Problems (Diagnosis) (1) Septic shock Current Visit: Yes Status: Acute Plan: CHOLECYTITIS IS POSSIBLE CAUSE. SHE MAY HAVE PYELONEPHRITIS ALSO SHE HAS HYDRONEPHROSIS. SHE ALSO AHS MASS ON LESSER CURVATURE OF STOMACH- 4 CM. THIS COULD BE CANCEROUS. SHE IS CYANOTIC ALREADY, HAS RAPID BREATHING. LAB EVAL SHOWS SEPSIS AND RENAL FAILURE. BLOOD CULTURES ARE POSITIVE. SHE MAY NOT LIVE MORE THAN A DAY OR TWO. I WROTE ORDERS BEFORE I LEFT HOSPITAL. (2) Acute kidney injury Current Visit: No Status: Acute - Advance Directives Does patient have a Living Will: Yes Does patient have a Durable POA for Healthcare: Yes
[2018-12-29] MEDS ORDERED: SCOPOLAMINE HYDROBROMIDE PATCH TD SCH (21:00)
[2018-12-30 01:36] VITALS: BP 77/37; TEMP 96.2
[2018-12-30 02:32] VITALS: BMI 22.4
[2018-12-30 02:47] VITALS: O2SAT 100
--- NOTE | 2018-12-30 06:29 | P.DS ---
Admission Date: 12/29/18 Discharge Date: 12/30/18 Disposition: Discharge Condition: Reason for Admission: HOSPICE FOR SEPTIC SHOCK - Problems (1) Septic shock Status: Acute (2) Acute kidney injury Status: Acute Brief History of Present Illness: MS. PARKS CAME TO ER WITH CHOLECYSTITIS, LOW PLATELETS AND RENAL FAILURE. SHE WAS ON IV MEDICATIONS TO IMPROVE BP, ANTIBIOTICS FAILED, SHE HAS GRADUALLY BECOME LETHARGIC AND FAMILY HAS ASKED FOR HOSPICE CARE. DR. KENNEDY CONSULTED [facility] TO TAKE CARE OVER THE CARE FOR HOSPICE. I CAME TO SEE THE PATIENT ON SCOND FLOOR MOVED FROM ICU. THERE IS NO ONE AT BEDSIDE. PATIENT IS OBTUNDED AND NOT ABLE TO TALK. Hospital Course: MS. PARKS EXPECTED LAST NIGHT FROM SEPTIC SHOCK AT 2:10 AM. Vital Signs/Physical Exam: Temp Pulse Resp BP Pulse Ox 96.2 F L 85 14 77/37 L 98 12/30/18 00:00 12/30/18 00:00 12/30/18 00:00 12/30/18 00:00 12/30/18 00:00 Home Medications: Metoprolol Tartrate [Lopressor] 25 mg PO DAILY 12/27/18
== END 2018-12-30 02:10 | disposition expired | DRG 951 ==
LOC: 2ND 18:08
PROVIDERS: ADMIT Internal Medicine; ATTEND Internal Medicine
DX: Z51.5 Encounter for palliative care (principal); R65.21 Severe sepsis with septic shock; K81.0 Acute cholecystitis; N17.9 Acute kidney failure, unspecified
CPT/HCPCS: J1170; J7030